=== PATIENT | male | born 1935 | race Caucasian/White ===

== ENCOUNTER 2016-04-25 08:00 | Outpatient (CLI) | payer MEDICARE, BC | END 2016-04-25 08:01 | disposition home or self-care (01) | DX: Z79.899 Other long term (current) drug therapy (principal); E11.9 Type 2 diabetes mellitus without complications ==

== ENCOUNTER 2016-07-10 08:00 | Outpatient (CLI) | payer MEDICARE, BC ==
[2016-07-10 14:10] LABS: BASOPHILS % (AUTO) 0.5 %; EOSINOPHILS # (AUTO) 0.3 10^3/uL (0.0-0.7); EOSINOPHILS % (AUTO) 3.2 %; HCT - HEMATOCRIT 43.7 % (42.0-52.0); HGB - HEMOGLOBIN 14.6 g/dL (14.0-18.0); LYMPHOCYTES # (AUTO) 1.5 10^3/uL (1.5-3.5); LYMPHOCYTES % (AUTO) 19.1 %; MEAN CORPUSCULAR HEMOGLOBIN 32.8 pg (27.0-31.0); MEAN CORPUSCULAR HGB CONC 33.3 g/dL (32.0-36.0); MEAN CORPUSCULAR VOLUME 98.5 fL (80.0-94.0); MEAN PLATELET VOLUME 11.2 fL (7.4-11.4); MONOCYTES # (AUTO) 0.8 10^3/uL (0.0-1.0); MONOCYTES % (AUTO) 10.7 %; NEUTROPHILS # (AUTO) 5.1 10^3/uL (1.5-6.6); NEUTROPHILS % (AUTO) 66.5 %; RED BLOOD COUNT 4.43 10^6/uL (4.70-6.10); RED CELL DISTRIBUTION WIDTH 12.3 % (12.0-15.0); UNCORRECTED WHITE BLOOD COUNT 7.7 x10^3/uL; WHITE BLOOD COUNT 7.7 x10^3/uL (4.8-10.8)
[2016-07-10 14:22] LABS: ALBUMIN/GLOBULIN RATIO 1.5 (1.0-2.2); BILIRUBIN,TOTAL 0.6 mg/dL (0.2-1.0); CREATININE 1.1 mg/dL (0.6-1.2); POTASSIUM 4.4 mmol/L (3.5-5.0); TOTAL PROTEIN 6.4 g/dL (6.7-8.2)
[2016-07-10 14:44] LABS: HEMOGLOBIN A1C 0.85 g/dL
== END 2016-07-10 08:01 ==
LOC: LAB.R 08:00
PROVIDERS: ATTEND Internal Medicine
DX: E11.65 Type 2 diabetes mellitus with hyperglycemia (principal); Z79.899 Other long term (current) drug therapy
CPT/HCPCS: 80053; 83036; 85025

== ENCOUNTER 2016-12-01 08:00 | Outpatient (CLI) | payer MEDICARE, BC ==
[2016-12-01 18:06] LABS: HEMOGLOBIN A1C 0.98 g/dL
== END 2016-12-01 08:01 | disposition home or self-care (01) ==
LOC: LAB.R 08:00
PROVIDERS: ATTEND Internal Medicine
DX: E11.9 Type 2 diabetes mellitus without complications (principal); Z79.899 Other long term (current) drug therapy
CPT/HCPCS: 83036

== ENCOUNTER 2017-05-29 09:00 | Outpatient (CLI) | payer MEDICARE, BC ==
[2017-05-29 13:31] LABS: HB2 TOTAL 16.6 g/dL; HEMOGLOBIN A1C 0.94 g/dL; HEMOGLOBIN A1C % 7.3 % (4.6-6.2)
== END 2017-05-29 09:01 | disposition home or self-care (01) ==
LOC: LAB.R 09:00
PROVIDERS: ATTEND Internal Medicine
DX: E11.9 Type 2 diabetes mellitus without complications (principal)
CPT/HCPCS: 83036

== ENCOUNTER 2017-07-17 08:25 | Outpatient (CLI) | payer MEDICARE, BC ==
[2017-07-17 15:50] LABS: ALBUMIN 3.8 g/dL (3.2-5.5); ALBUMIN/GLOBULIN RATIO 1.3 (1.0-2.2); BILIRUBIN,TOTAL 0.9 mg/dL (0.2-1.0); CALCIUM 8.5 mg/dL (8.5-10.3); CREATININE 1.1 mg/dL (0.6-1.2); TOTAL PROTEIN 6.7 g/dL (6.7-8.2)
[2017-07-17 16:04] LABS: BASOPHILS # (AUTO) 0.1 10^3/uL (0.0-0.1); BASOPHILS % (AUTO) 0.9 %; EOSINOPHILS # (AUTO) 0.2 10^3/uL (0.0-0.7); EOSINOPHILS % (AUTO) 3.2 %; HGB - HEMOGLOBIN 14.1 g/dL (14.0-18.0); LYMPHOCYTES # (AUTO) 1.5 10^3/uL (1.5-3.5); LYMPHOCYTES % (AUTO) 20.4 %; MEAN CORPUSCULAR HEMOGLOBIN 31.4 pg (27.0-31.0); MEAN CORPUSCULAR HGB CONC 31.9 g/dL (32.0-36.0); MEAN CORPUSCULAR VOLUME 98.4 fL (80.0-94.0); MEAN PLATELET VOLUME 10.5 fL (7.4-11.4); MONOCYTES # (AUTO) 0.8 10^3/uL (0.0-1.0); MONOCYTES % (AUTO) 10.9 %; NEUTROPHILS # (AUTO) 4.7 10^3/uL (1.5-6.6); NEUTROPHILS % (AUTO) 64.6 %; PLT - PLATELET COUNT 223 10^3/uL (130-450); RED BLOOD COUNT 4.47 10^6/uL (4.70-6.10); RED CELL DISTRIBUTION WIDTH 12.3 % (12.0-15.0); WHITE BLOOD COUNT 7.3 x10^3/uL (4.8-10.8)
== END 2017-07-17 08:26 | disposition home or self-care (01) ==
LOC: LAB.R 08:25
PROVIDERS: ATTEND Internal Medicine
DX: E11.9 Type 2 diabetes mellitus without complications (principal); Z79.899 Other long term (current) drug therapy
CPT/HCPCS: 80053; 85025

== ENCOUNTER 2017-09-06 11:42 | Emergency (ER) | payer MEDICARE, BC ==
--- NOTE | 2017-09-06 12:06 | ED Physician Documentation ---
PD HPI SYNCOPE - Stated complaint Stated Complaint: Dizzy - Chief complaint Chief Complaint: Neuro - History obtained from History obtained from: Patient - History of Present Illness Witnessed: Witnessed Timing - onset: Today Duration: Seconds Preceding symptoms: Light headed, Generalized weakness. No: Headache, Chest pain, Nausea / vomiting Associated symptoms: Diaphoresis. No: Headache, Chest pain, Palpitations, Abdominal pain Contributing factors: Just stood up (he was after adventism, was sitting down having a snack, and then stood up to get a cookie, felt lightheaded. says he was pale and sweaty. He sat down and recovered in a minute or so. EMS found him in sinus rhythm. BP was okay at that time.) Injury occurred: No: Fell, Head injury Similar symptoms before: Has not had sx before Recently seen: Not recently seen Review of Systems Constitutional: denies: Fever, Chills Eyes: denies: Loss of vision Nose: denies: Rhinorrhea / runny nose, Congestion Throat: denies: Sore throat Cardiac: denies: Chest pain / pressure, Palpitations Respiratory: denies: Dyspnea, Cough GI: denies: Abdominal Pain, Vomiting, Diarrhea : denies: Dysuria, Frequency Skin: denies: Rash Musculoskeletal: denies: Neck pain, Back pain Neurologic: reports: Generalized weakness. denies: Focal weakness, Numbness, Difficulty speaking, Headache Endocrine: denies: Weight loss Immunocompromised: denies: Immunocompromised PD PAST MEDICAL HISTORY - Past Medical History Cardiovascular: Hypertension, High cholesterol GI: Diverticulitis Musculoskeletal: Other - Past Surgical History Past Surgical History: Yes Ortho: Shoulder arthroplasty, Spine surgery HEENT: Cataracts - Present Medications Home Medications: Ambulatory Orders Medication Instructions Recorded Confirmed Celecoxib [Celebrex] 200 mg PO DAILY 06/02/14 08/28/14 Citalopram [CeleXA] 10 mg PO DAILY 06/02/14 08/28/14 metFORMIN [Glucophage] 500 mg PO BID 06/02/14 08/28/14 - Allergies Allergies/Adverse Reactions: Allergies Allergy/AdvReac Type Severity Reaction Status Date / Time hydrocodone Allergy Hives Verified 06/02/14 12:07 - Living Situation Living Situation: reports: With spouse/s.o. Living Arrangement: reports: At home - Social History Does the pt smoke?: No Smoking Status: Never smoker Does the pt drink ETOH?: No Does the pt have substance abuse?: No - Family History Family history: reports: Non contributory - Immunizations Immunizations are current?: Yes PD ED PE NORMAL - Vitals Vital signs reviewed: Yes - General General: Alert and oriented X 3, No acute distress, Well developed/nourished - HEENT HEENT: Atraumatic, PERRL, EOMI, Pharynx benign - Neck Neck: Supple, no meningeal sign, No adenopathy - Cardiac Cardiac: RRR, No murmur - Respiratory Respiratory: Clear bilaterally - Abdomen Abdomen: Soft, Non tender - Male Male : Deferred - Rectal Rectal: Deferred - Back Back: No CVA TTP - Derm Derm: Normal color, Warm and dry - Extremities Extremities: No deformity, No tenderness to palpate, Normal ROM s pain, No edema , No calf tenderness / cord - Neuro Neuro: Alert and oriented X 3, No motor deficit, Normal speech Eye Opening: Spontaneous Motor: Obeys Commands Verbal: Oriented GCS Score: 15 - Psych Psych: Normal mood Results - Vitals Vitals: Oxygen O2 Source Room air - EKG (time done) 11:58 Rate: Rate (enter#) (54) Rhythm: Sinus bradycardia [place]: Normal Intervals: Normal SD QRS: Normal Ischemia: Normal ST segments. No: ST elevation c/w ischemia, ST depression - Labs Labs: Laboratory Tests 09/06/17 09/06/17 09/06/17 12:10 12:10 12:10 WBC 8.7 RBC 4.21 L Hgb 14.0 Hct 42.2 MCV 100.2 H MCH 33.1 H MCHC 33.1 RDW 12.3 Plt Count 231 MPV 10.0 Neut # (Auto) 5.9 Lymph # (Auto) 1.5 [place] # (Auto) 1.0 Eos # (Auto) 0.1 Baso # (Auto) 0.1 Absolute Nucleated RBC 0.00 Nucleated RBC % 0.0 Sodium 135 Potassium 4.1 Chloride 103 Carbon Dioxide 22 Anion Gap 10.0 BUN 27 H Creatinine 1.1 Estimated GFR (MDRD) 64 L Glucose 149 H POC Whole Bld Glucose Calcium 8.6 Magnesium 2.1 Total Bilirubin 0.5 AST 18 ALT 22 Alkaline Phosphatase 46 Troponin I B-Natriuretic Peptide Total Protein 6.5 L Albumin 3.5 Globulin 3.0 Albumin/Globulin Ratio 1.2 Lipase 20 L 09/06/17 09/06/17 09/06/17 12:10 12:10 12:14 WBC RBC Hgb Hct MCV MCH MCHC RDW Plt Count MPV Neut # (Auto) Lymph # (Auto) [place] # (Auto) Eos # (Auto) Baso # (Auto) Absolute Nucleated RBC Nucleated RBC % Sodium Potassium Chloride Carbon Dioxide Anion Gap BUN Creatinine Estimated GFR (MDRD) Glucose POC Whole Bld Glucose 189 H Calcium Magnesium Total Bilirubin AST ALT Alkaline Phosphatase Troponin I < 0.04 B-Natriuretic Peptide 20 Total Protein Albumin Globulin Albumin/Globulin Ratio Lipase PD MEDICAL DECISION MAKING - ED course Complexity details: reviewed results, re-evaluated patient (still feeling okkay) , considered differential, d/w patient - Sepsis Event Vital Signs: Oxygen O2 Source Room air Departure - Departure Disposition: 01 Home, Self Care Clinical Impression: Near syncope Condition: Stable Record reviewed to determine appropriate education?: Yes Instructions: ED Near Syncope Unkn Follow-Up: Fei Sam MD [Primary Care Provider] - Comments: Drink lots of fluids and rest today. Your heart rhythm and EKG have been good here. Your blood count electrolytes are also good. No signs of heart failure or heart attack on blood tests or EKG. I presume there was a transient drop in blood pressure or possibly abnormal heart rhythm. These would not leave telltale signs subsequently, so can only make a gas at it. You look well now so you should be okay heading home. Discharge Date/Time: 09/06/17 15:00
[2017-09-06 12:16] LABS: BASOPHILS # (AUTO) 0.1 10^3/uL (0.0-0.1); BASOPHILS % (AUTO) 0.7 %; EOSINOPHILS # (AUTO) 0.1 10^3/uL (0.0-0.7); EOSINOPHILS % (AUTO) 1.5 %; LYMPHOCYTES # (AUTO) 1.5 10^3/uL (1.5-3.5); LYMPHOCYTES % (AUTO) 17.4 %; MEAN CORPUSCULAR HEMOGLOBIN 33.1 pg (27.0-31.0); MEAN CORPUSCULAR HGB CONC 33.1 g/dL (32.0-36.0); MEAN CORPUSCULAR VOLUME 100.2 fL (80.0-94.0); MONOCYTES % (AUTO) 11.9 %; NEUTROPHILS # (AUTO) 5.9 10^3/uL (1.5-6.6); NEUTROPHILS % (AUTO) 68.5 %; PLT - PLATELET COUNT 231 10^3/uL (130-450); RED BLOOD COUNT 4.21 10^6/uL (4.70-6.10); RED CELL DISTRIBUTION WIDTH 12.3 % (12.0-15.0); WHITE BLOOD COUNT 8.7 x10^3/uL (4.8-10.8)
[2017-09-06 12:31] LABS: ALBUMIN 3.5 g/dL (3.2-5.5); ALBUMIN/GLOBULIN RATIO 1.2 (1.0-2.2); BILIRUBIN,TOTAL 0.5 mg/dL (0.2-1.0); CALCIUM 8.6 mg/dL (8.5-10.3); CREATININE 1.1 mg/dL (0.6-1.2); TOTAL PROTEIN 6.5 g/dL (6.7-8.2)
[2017-09-06] MEDS ORDERED: SODIUM CHLORIDE 0.9% 1,000 ML IV ONE (12:48)
[2017-09-06 14:57] VITALS: BP 130/69
== END 2017-09-06 15:00 | disposition home or self-care (01) ==
LOC: ED 11:42
DX: R55 Syncope and collapse (principal)
CPT/HCPCS: 36415; 80053; 83690; 83735; 83880; 84484; 85025; 93005; 96360; 96361; 99283; 99284

== ENCOUNTER 2017-09-18 11:14 | Outpatient (CLI) | payer MEDICARE, BC ==
--- NOTE | 2017-09-18 16:42 | CT Report ---
Procedure Date: 09/18/2017 Accession Number: [id number] / [id number] Procedure: CT - Head W/O CPT Code: FULL RESULT: EXAM: Head W/O DATE: 09/18/2017 11:29 AM CLINICAL HISTORY: (IDIOPATHIC) NORMAL PRESSURE HYDROCEPHALUS COMPARISON: Head CT 01/20/2008. TECHNIQUE: Multiaxial CT images were obtained from the foramen magnum to the vertex. IV contrast: None. Reformats: Coronal. In accordance with CT protocol optimization, one or more of the following dose reduction techniques were utilized for this exam: automated exposure control, adjustment of mA and/or KV based on patient size, or use of iterative reconstructive technique. FINDINGS: Parenchyma: No intraparenchymal hemorrhage. No evidence of mass, midline shift, or CT findings of infarction. Grover-white differentiation is distinct. Extraaxial Spaces: Normal for age. No subdural or epidural collections identified. Ventricles: Interval placement of a right parietal approach ventriculostomy catheter terminating in the anterior horn of the left lateral ventricle. Stable ventriculomegaly. Sinuses: Imaged paranasal sinuses, orbits, and mastoids show no significant abnormality. Bones: No evidence of fracture or calvarial defect. Other: None. IMPRESSION: Interval ventriculostomy catheter placement with stable ventricular configuration. RADIA
== END 2017-09-18 11:15 | disposition home or self-care (01) ==
LOC: DI 11:14
PROVIDERS: ATTEND Physician Assistant Surgical
DX: G91.2 (Idiopathic) normal pressure hydrocephalus (principal); Z98.2 Presence of cerebrospinal fluid drainage device
CPT/HCPCS: 70450

== ENCOUNTER 2017-10-20 06:15 | Day surgery (SDC) | payer MEDICARE, BC ==
[2017-10-20] MEDS ORDERED: PROPOFOL 200 MG/20 ML VIAL IVP ONE (06:16)
[2017-10-20] MEDS ORDERED: LIDOCAINE-MPF 2% 5 ML VIAL IM ONE (06:16)
[2017-10-20] MEDS ORDERED: LACTATED RINGERS 1,000 ML IV ONE (06:43)
[2017-10-20] MEDS ORDERED: BUPIVACAINE 0.25% PF 30 ML VIAL ONE (06:55)
[2017-10-20] MEDS ORDERED: LIDOCAINE 1%-EPI 1:100000 30 ML MDV ONE (06:55)
--- NOTE | 2017-10-20 07:05 | ANESTHESIA ---
Pre-Anesthesia VS, & Labs - Diagnosis Bilateral carpal tunnel release - Procedure Bilateral Carpal Tunnel Release Vital Signs: Temp Pulse Resp BP Pulse Ox 36.5 C 24 127/59 L 97 10/20/17 06:41 10/20/17 06:41 10/20/17 06:41 10/20/17 06:41 Height 5 ft 6 in Weight (kg) 95.7 kg Body Mass Index 32.8 - NPO >8 hours Home Medications and Allergies Home Medications: Ambulatory Orders Medication Instructions Recorded Confirmed Celecoxib [Celebrex] 200 mg PO DAILY 06/02/14 10/19/17 Citalopram [CeleXA] 20 mg PO DAILY 06/02/14 10/19/17 metFORMIN [Glucophage] 500 mg PO BID 06/02/14 10/19/17 Acetaminophen [Tylenol Arthritis] 650 mg PO Q6HR PRN 10/19/17 10/19/17 Allergies/Adverse Reactions: Allergies Allergy/AdvReac Type Severity Reaction Status Date / Time hydrocodone Allergy Hives Verified 10/20/17 06:58 latex AdvReac Rash Verified 10/20/17 06:58 Anes History & Medical History - Anesthetic History Anesthesia Complications: reports: No previous complications Family history of Anesthesia Complications: Denies Family history of Malignant Hyperthermia: Denies - Medical History Cardiovascular: reports: Hypertension, High cholesterol, NV (patient denies) Pulmonary: reports: Sleep apnea, CPAP use Gastrointestinal: reports: Diverticulitis Musculoskeletal: reports: Chronic back pain, Other Endocrine/Autoimmune: reports: None, Type 2 diabetes Skin: reports: None Smoking Status: Never smoker - Surgical History Eyes Ears Nose Throat (EENT): Cataracts, Tonsil/Adenoidectomy Neurologic: SAMPLE PREP TECHNICIAN shunt Orthopedic: Shoulder arthroplasty, Spine surgery, Other Results - EKG Results EKG Comparison: Reviewed EKG (SR, boarderline AL, no ishemic changes) Exam General: Alert Dental: WNL Mouth Opening: Greater than 4 Fingerbreadths Neck Mobility: Normal Mallampati classification: II Thyromental Distance: greater than 6 cm Respiratory: Lungs clear Cardiovascular: Regular rate Plan Anesthesia Type: MAC Consent for Procedure(s) Verified and Reviewed: Yes Code Status: Attempt Resuscitation ASA classification: 3-Severe systemic disease Is this case an emergency?: No
[2017-10-20] MEDS ORDERED: fentaNYL 100 MCG/2 ML VIAL IVP ONE (07:50)
[2017-10-20] MEDS ORDERED: BUPIVACAINE 0.25% PF 30 ML VIAL SUBQ ONE ×2 (07:55)
[2017-10-20] MEDS ORDERED: LIDOCAINE 1%-EPI 1:100000 20 ML MDV SUBQ ONE ×2 (07:56)
[2017-10-20 09:23] VITALS: BP 121/67
--- NOTE | 2017-10-20 14:34 | OPERATIVE REPORT ---
DATE OF SERVICE: 10/20/2017 Physician: Lotus Miranda MD PREOPERATIVE DIAGNOSIS: Bilateral carpal tunnel syndrome. POSTOPERATIVE DIAGNOSIS: Bilateral carpal tunnel syndrome. PROCEDURE PERFORMED: Bilateral carpal tunnel release. OPERATING SURGEON: Lotus Miranda MD ANESTHESIA: Local and MAC sedation. INDICATIONS FOR SURGERY: Patient is an 82-year-old male with progressive bilateral carpal tunnel syn drome, who has failed nonoperative treatment including bracing and he desires carpal tunnel release. DESCRIPTION OF OPERATIVE PROCEDURE: The patient was taken to the operating room and was given a leopoldo tion anesthetic and his carpal tunnel areas in each palm were sterilely infiltrated with 8 mL of 0.25 % Marcaine with epinephrine. Once these carpal tunnel blocks were performed, the surgical timeout wa s undertaken, the patient's hands were prepped and draped in standard fashion. The surgical approach was first on the right hand with 1-1/2 inch incision in the palm in line with the third web taken th rough skin and subcutaneous tissue, exposing transverse carpal ligament, which was divided in line wi th the incision. The release extended from the distal wrist flexion crease to the level of the dista l palmar arch. The area was irrigated and closed with interrupted nylon suture. A sterile dressing was applied. The identical surgery was then performed on the left palm once again sizing 1-1/2 inche s in line with the third web dissecting to transverse carpal ligament, dividing it directly and with direct exposure extending from distal wrist flexion crease to the palmar arch gaining great exposure. The wound was irrigated. Closure was with 3-0 nylon interrupted in the skin. Sterile dressings we re applied. The patient was taken to recovery room in stable condition. ESTIMATED BLOOD LOSS: Minimal. COMPLICATIONS: None. COUNTS: Sponge and needle counts correct. TD: 10/20/2017 13:52
== END 2017-10-20 06:16 | disposition home or self-care (01) ==
LOC: SDS 06:15
PROVIDERS: ATTEND Orthopaedic Surgery
PROC: 01N50ZZ Release Median Nerve, Open Approach (ICD-10-PCS; 2017-10-20)
PROC: 01N50ZZ Release Median Nerve, Open Approach (ICD-10-PCS; principal; 2017-10-20 07:30)
DX: G56.03 Carpal tunnel syndrome, bilateral upper limbs (principal); G47.30 Sleep apnea, unspecified; E11.9 Type 2 diabetes mellitus without complications; I10 Essential (primary) hypertension; F32.9 Major depressive disorder, single episode, unspecified; F41.9 Anxiety disorder, unspecified; G91.2 (Idiopathic) normal pressure hydrocephalus; Z98.2 Presence of cerebrospinal fluid drainage device; Z79.84 Long term (current) use of oral hypoglycemic drugs
CPT/HCPCS: 64721; J7120

== ENCOUNTER 2018-09-28 12:18 | Outpatient (CLI) | payer MEDICARE, BC ==
[2018-09-28 12:50] LABS: BASOPHILS # (AUTO) 0.1 10^3/uL (0.0-0.1); BASOPHILS % (AUTO) 0.7 %; EOSINOPHILS # (AUTO) 0.2 10^3/uL (0.0-0.7); EOSINOPHILS % (AUTO) 2.1 %; HGB - HEMOGLOBIN 13.8 g/dL (14.0-18.0); LYMPHOCYTES # (AUTO) 1.7 10^3/uL (1.5-3.5); MEAN CORPUSCULAR HEMOGLOBIN 31.9 pg (27.0-31.0); MEAN CORPUSCULAR HGB CONC 31.7 g/dL (32.0-36.0); MEAN CORPUSCULAR VOLUME 100.7 fL (80.0-94.0); MEAN PLATELET VOLUME 11.7 fL (7.4-11.4); MONOCYTES # (AUTO) 0.9 10^3/uL (0.0-1.0); MONOCYTES % (AUTO) 12.3 %; NEUTROPHILS # (AUTO) 4.8 10^3/uL (1.5-6.6); NEUTROPHILS % (AUTO) 62.5 %; PLT - PLATELET COUNT 246 10^3/uL (130-450); RED BLOOD COUNT 4.32 10^6/uL (4.70-6.10); RED CELL DISTRIBUTION WIDTH 12.3 % (12.0-15.0); WHITE BLOOD COUNT 7.6 x10^3/uL (4.8-10.8)
[2018-09-28 13:05] LABS: ALBUMIN 3.7 g/dL (3.2-5.5); ALBUMIN/GLOBULIN RATIO 1.3 (1.0-2.2); BILIRUBIN,TOTAL 0.6 mg/dL (0.2-1.0); CALCIUM 8.9 mg/dL (8.5-10.3); CREATININE 1.2 mg/dL (0.6-1.2); TOTAL PROTEIN 6.6 g/dL (6.7-8.2)
[2018-09-28 13:09] LABS: HB2 TOTAL 14.5 g/dL; HEMOGLOBIN A1C 0.87 g/dL; HEMOGLOBIN A1C % 7.6 % (4.6-6.2)
== END 2018-09-28 12:19 | disposition home or self-care (01) ==
LOC: LAB 12:18
PROVIDERS: ATTEND Family Medicine
DX: G47.33 Obstructive sleep apnea (adult) (pediatric) (principal); Z79.899 Other long term (current) drug therapy; E11.9 Type 2 diabetes mellitus without complications; G91.2 (Idiopathic) normal pressure hydrocephalus; E66.9 Obesity, unspecified
CPT/HCPCS: 36415; 80053; 83036; 83880; 84443; 85025

== ENCOUNTER 2019-04-10 09:08 | Outpatient (CLI) | payer MEDICARE, BC ==
[2019-04-10 09:37] LABS: CALCIUM 8.8 mg/dL (8.5-10.3); CREATININE 1.3 mg/dL (0.6-1.2)
[2019-04-10 09:46] LABS: HB2 TOTAL 14.4 g/dL; HEMOGLOBIN A1C % 8.5 % (4.6-6.2)
== END 2019-04-10 09:09 | disposition home or self-care (01) ==
LOC: LAB 09:08
PROVIDERS: ATTEND Family Medicine
DX: E11.9 Type 2 diabetes mellitus without complications (principal)
CPT/HCPCS: 36415; 80048; 83036

== ENCOUNTER 2019-04-19 10:19 | Outpatient (CLI) | payer MEDICARE, BC ==
[2019-04-20 08:51] VITALS: BP 138/83
--- NOTE | 2019-04-20 08:51 | SLEEP CARE CONSULTATION ---
Information from patient questionnaire entered by Gabriella Feng. I have reviewed and concur with the information entered by Gabriella Feng. This document represents the service I personally performed and the decisions made by me, Kye Kidd MD, [facility]. History of Present Illness Reason for Visit: Previously diagnosed sleep apnea (mild - 16.7), Re-establish care Additional HPI information: I had the pleasure of seeing Mr. Saba today regarding obstructive sleep apnea-hypopnea. As you know, he is a 83 year old gentleman who was diagnosed with the sleep-disordered breathing here in 2006 (he was actually first diagnosed in the mid in [place]). The AHI was 16.7. He was prescribed a CPAP device set at 13 cmH2O. He uses the Respironics M-Series CPAP every night and all night. His memory card cannot be downloaded because it is the old credit-card type. He wears a ResMed Quattro full face mask which leaks profusely according to his . He gets his supplies from [employer]. He finds the treatment very beneficial but still is sleepy during the day. He reports that the CPAP turns itself off frequently at night. Past Medical History Past Medical History: reports: Diabetes, Other (S/P tonsillectomy) Social History The patient's occupation is a RE. Patient is and lives in [place]. Allergies and Home Medications Drug allergies reviewed: Yes (NKDA) Home medication list reviewed: Yes (Advil, Tylenol, Celebrex, and metformin) Review of Systems Cardiovascular: denies: high blood pressure, palpitations, chest pain, irregular heart rate or pulse, leg or foot swelling, have to sleep sitting up, other Respiratory: denies: shortness of breath, wheeze, sputum production, chronic cough, other Gastrointestinal: denies: heartburn, difficulty swallowing, nausea, vomitting, diarrhea, abdominal pain, other Urinary: denies: incontinence, frequency, urgency, impotence, other Neurological: denies: headaches, seizure, head trauma, disorientation, speech dysfunction, gait or balance problems, fainting or unconsciousness, other Psychiatric: denies: Attention Deficit Hyperactivity, anxiety, depression, mood disorder, claustrophobia, other Ear/Nose/Throat: denies: nasal congestion, sinus problems, nose bleeds, dry mouth/throat, hoarseness, injury to nose, tonsillectomy, wisdom teeth removed, other Immunologic: denies: sneezing, rash, itching, allergies to food or environment, other Physical Exam Vital signs obtained and entered by: Dr. Kidd Blood Pressure: 138/83 Cuff size: regular Heart Rate: 75 O2 Saturation: 98 Height: 5 ft 6 in Weight: 212 lb Body Mass Index: 34.2 BMI Classification: Obese Neck circumference: 16 Mood/affect: normal HEENT: No craniofacial malformation Nostrils: patent to airflow Turbinates: normal Septum: midline Mouth and throat: narrow oropharynx Soft palate: long Hard palate: normal Uvula: normal Uvula visualization: 50% Mallampati Class II Tongue: normal in size Tonsils: small Chin and jaw: normal size and position Neck: normal w/o lymphadenopathy or thyromegaly Heart: regular rate and rhythm Lungs: clear bilaterally Abdomen: soft, non-tender Extremities: no edema or clubbing Neurologic: intact, no focal deficits Impression and Plan IMPRESSION: 1. Obstructive Sleep Apnea-Hypopnea Syndrome, moderate, as previously diagnosed. The patient has had good treatment compliance according to him and his . The current pressure setting appears comfortable. The effectiveness is unknown because we cannot download the credit-card type memory card. The patient experiences improvement on the treatment but is still sleepy during the day. Narrow oropharynx and obesity are common predisposing factors for obstructive sleep apnea-hypopnea syndrome. Because the CPAP is broken and is now older than the useful life of 5 years, I will order the patient a new one and make it an autoCPAP set between 10 and 15 cmH2O. Plan: 1. Prescription made for an autoCPAP, heated humidifier, and related supplies. 2. Try newer full face masks. 3. Avoid alcohol, sedative and muscle relaxant around bedtime. 4. Attempt to lose weight. 5. Return for follow up after one month on the new machine. I spent 100% of this visit face to face with the patient with greater than 50% of this was spent time counseling the patient and coordination of care.
== END 2019-04-19 10:20 | disposition home or self-care (01) ==
LOC: SC 10:19
PROVIDERS: ATTEND Internal Medicine Pulmonary Disease
DX: G47.33 Obstructive sleep apnea (adult) (pediatric) (principal); E66.9 Obesity, unspecified; Z68.34 Body mass index [BMI] 34.0-34.9, adult
CPT/HCPCS: 99203; G0463; 99212

== ENCOUNTER 2019-07-20 11:57 | Outpatient (CLI) | payer MEDICARE, BC ==
--- NOTE | 2019-07-21 14:03 | CT Report ---
Reason: ALTERED MENTAL STATUS Procedure Date: 07/20/2019 Accession Number: [id number] / [id number] Procedure: CT - HEAD WO CPT Code: Final Report FULL RESULT: EXAM: CT HEAD EXAM DATE: 07/20/2019 12:15 PM. CLINICAL HISTORY: ALTERED MENTAL STATUS. History of HEALTH SCIENCES MANAGER shunt. COMPARISON: HEAD W/O 09/18/2017 11:26 AM. TECHNIQUE: Multiaxial CT images were obtained from the foramen magnum to the vertex. Reformats: Sagittal and coronal. IV contrast: None. In accordance with CT protocol optimization, one or more of the following dose reduction techniques were utilized for this exam: automated exposure control, adjustment of mA and/or KV based on patient size, or use of iterative reconstructive technique. FINDINGS: Parenchyma: No intraparenchymal hemorrhage. No evidence of mass, midline shift, or CT findings of acute infarction. Grover-white differentiation is distinct. Diffuse chronic microangiopathic white matter changes are evident. Extraaxial Spaces: Normal for age. No subdural or epidural collections identified. Ventricles: Mild diffuse prominence of the sulci is consistent with age-related volume loss. Again demonstrated is a right parietal approach ventricular shunt catheter which extends across the midline with the tip in the lateral aspect of the left frontal horn, without change. Ventricular dilatation is unchanged. Sinuses and orbits: Imaged paranasal sinuses, orbits, and mastoids show no significant abnormality. Bones: No evidence of fracture or calvarial defect. Other: None. IMPRESSION: 1. No acute abnormality of the head or significant interval change. 2. Stable appearance of the ventricular shunt catheter. Stable ventricular dilatation compared with 09/18/2017. RADIA
== END 2019-07-20 11:58 | disposition home or self-care (01) ==
LOC: DI 11:57
PROVIDERS: ATTEND Neurological Surgery
DX: R41.82 Altered mental status, unspecified (principal); Z98.2 Presence of cerebrospinal fluid drainage device
CPT/HCPCS: 70450

== ENCOUNTER 2019-11-14 10:59 | Outpatient (CLI) | payer MEDICARE, BC ==
[2019-11-14 11:34] LABS: BASOPHILS # (AUTO) 0.1 10^3/uL (0.0-0.1); BASOPHILS % (AUTO) 0.7 %; EOSINOPHILS # (AUTO) 0.2 10^3/uL (0.0-0.7); EOSINOPHILS % (AUTO) 2.6 %; HGB - HEMOGLOBIN 14.2 g/dL (14.0-18.0); LYMPHOCYTES # (AUTO) 1.2 10^3/uL (1.5-3.5); LYMPHOCYTES % (AUTO) 16.7 %; MEAN CORPUSCULAR HEMOGLOBIN 33.6 pg (27.0-31.0); MEAN CORPUSCULAR HGB CONC 32.8 g/dL (32.0-36.0); MEAN CORPUSCULAR VOLUME 102.4 fL (80.0-94.0); MEAN PLATELET VOLUME 10.5 fL (7.4-11.4); MONOCYTES # (AUTO) 0.8 10^3/uL (0.0-1.0); MONOCYTES % (AUTO) 10.8 %; NEUTROPHILS # (AUTO) 5.1 10^3/uL (1.5-6.6); NEUTROPHILS % (AUTO) 68.5 %; PLT - PLATELET COUNT 300 10^3/uL (130-450); RED BLOOD COUNT 4.23 10^6/uL (4.70-6.10); RED CELL DISTRIBUTION WIDTH 12.3 % (12.0-15.0); WHITE BLOOD COUNT 7.4 x10^3/uL (4.8-10.8)
[2019-11-14 12:12] LABS: ALBUMIN 3.7 g/dL (3.2-5.5); ALBUMIN/GLOBULIN RATIO 1.3 (1.0-2.2); ALKALINE PHOSPHATASE 51 IU/L (42-121); ALT ALANINE AMINOTRANSFERASE 25 IU/L (10-60); AST ASPARTATE AMINOTRANSFERASE 14 IU/L (10-42); BILIRUBIN,TOTAL 0.6 mg/dL (0.2-1.0); BUN - BLOOD UREA NITROGEN 37 mg/dL (6-20); CARBON DIOXIDE - CO2 27 mmol/L (21-32); CHLORIDE 106 mmol/L (101-111); CHOLESTEROL 139 mg/dL; CREATININE 1.2 mg/dL (0.6-1.2); GLUCOSE 118 mg/dL (70-100); HDL CHOLESTEROL 35 mg/dL; LDL CHOLESTEROL,CALCULATED 83 mg/dL; LDL/HDL RATIO 2.4 (<3.6); SODIUM 140 mmol/L (135-145); TOTAL PROTEIN 6.6 g/dL (6.7-8.2); VLDL CHOLESTEROL 21 mg/dL
== END 2019-11-14 11:00 | disposition home or self-care (01) ==
LOC: LAB 10:59
PROVIDERS: ATTEND Family Medicine
DX: M25.512 Pain in left shoulder (principal); M54.16 Radiculopathy, lumbar region; E66.9 Obesity, unspecified; G47.33 Obstructive sleep apnea (adult) (pediatric); E11.9 Type 2 diabetes mellitus without complications; G91.2 (Idiopathic) normal pressure hydrocephalus
CPT/HCPCS: 36415; 80053; 80061; 83036; 83721; 84443; 85025

== ENCOUNTER 2020-02-13 10:45 | Outpatient (CLI) | payer MEDICARE, BC ==
[2020-02-13 11:37] LABS: CALCIUM 9.3 mg/dL (8.5-10.3); CREATININE 1.3 mg/dL (0.6-1.2)
[2020-02-13 12:01] LABS: HEMOGLOBIN A1c% 6.4 % (4.27-6.07)
== END 2020-02-13 10:46 | disposition home or self-care (01) ==
LOC: LAB 10:45
PROVIDERS: ATTEND Family Medicine
DX: E11.9 Type 2 diabetes mellitus without complications (principal)
CPT/HCPCS: 36415; 80048; 82043; 82570; 83036

== ENCOUNTER 2020-02-15 08:00 | Outpatient (CLI) | payer MEDICARE, BC ==
[2020-02-15 09:51] LABS: CREATININE,URINE 68.5 mg/dL
[2020-02-15 09:52] LABS: MICROALBUMIN,URINE < 0.2 mg/dL (0-300.0)
== END 2020-02-15 23:59 | disposition home or self-care (01) ==
LOC: LAB.R 08:00
PROVIDERS: ATTEND Family Medicine
DX: E11.9 Type 2 diabetes mellitus without complications (principal)
CPT/HCPCS: 82043; 82570

== ENCOUNTER 2020-03-28 14:03 | Outpatient (CLI) | payer MEDICARE, BC ==
--- NOTE | 2020-03-28 14:40 | SLEEP CARE CONSULTATION ---
Information from patient questionnaire entered by Clark Morales. I have reviewed and concur with the information entered by Clark Morales. This document represents the service I personally performed and the decisions made by me, Janey Sarmiento ARNP. History of Present Illness Service Date and Time: 03/28/2020 1403 Previous diagnosis: Moderate, Obstructive Sleep Apnea-Hypopnea Syndrome AHI: 16.7 Reason for follow up: first compliance after device update Equipment type: CPAP Equipment obtained from: [employer] (getting supplies as needed) Mask style: Full face Mask brand: Resmed (Mirage Quattro) Backup mask available: Yes (old mask) Last cushion change: 2 months Year and Where: 2006 [facility] Type of Sleep Study: Polysomnography HPI additional information: KENNY LOZOYA was diagnosed to have moderate, AHI 16.7, obstructive sleep apnea-hypopnea syndrome and returned today for CPAP therapy first compliance follow-up. CPAP Compliance Data - Data Reviewed with Patient Average duration of nightly device use: 6 hours 59 minutes Compliance rate %: 83.3 Current pressure setting (cmH2O): 10-15 Humidity settin Heated hose settin Average residual AHI: 12.7 Central apnea: 1.1 Obstructive apnea: 8.8 Hypopnea: 2.9 Average large leak: 34 sec Subjective Patient concerns: reports: mask discomfort, mask leak noise, dry mouth, nose, throat (occasionally). denies: aerophagia, air blowing in eyes, condensation in mask/hose, nasal congestion, epistaxis, other Observed to snore while using device: Yes (once in a while) Current pressure setting perceived as: too low (doesn't feel like its breathing enough for him) On therapy, patient: reports: sleeping better, awakening more refreshed, being more awake and alert during the day, more rested overall. denies: drowsiness while driving Initial [place] Sleepiness Scale score: 2 (in 2019 (0 in 2009)) Allergies and Home Medications Drug allergies reviewed: Yes (hydrocodone, latex) Home medication list reviewed: Yes (Glimepride) Review of Systems Review of systems same as previous: Yes (no changes) Physical Exam Heart Rate: 73 O2 Saturation: 97 Height: 5 ft 6 in Weight: 205 lb Body Mass Index: 33.0 BMI Classification: Obese Impression and Plan 1. Obstructive Sleep Apnea-Hypopnea Syndrome, moderate, with good treatment compliance and fair apnea control. On CPAP therapy, the patient has better sleep quality and is more rested overall. To resolved air hunger I will adjust his pressure. The patients pressure will be changed to autoCPAP 14-18 cmH20 for elevation of the residual AHI and air hunger. Patient advised to contact me if pressure change is uncomfortable so that it can be adjusted. Goals for apnea control discussed. He has some mouth dryness occasionally and gets some mask leak noises around seal. Oral dryness can be reduced by adjusting humidity setting higher or heated hose lower or by adjusting both settings. Printed instructions given on how to change humidity and heated hose settings with rationale explaining why to change. Oral dryness can also be reduced by reducing mask leaks. Patient's states there is a flap noise on the mask that disturbs her sleep. It doesn't happen all the time and can be rhythmic. This may improve with increasing the pressure for his air hunger. If not, he may try a different full face mask that would be quieter. Patient's apnea severity and rationale for treatment to reduce apnea, improve sleep quality and reduce cardiovascular and cerebrovascular events was reviewed. I also reviewed the benefit of consistent device use of CPAP for arrhythmia, diabetes, and depression. * Change auto CPAP pressure to 14-18 cmH2O * Notify me if snoring with mask or feeling that the pressure is too much or too little * Attempt to lose weight * Call this office if any problems using CPAP * Return for follow up in 1-2 months, or sooner if concerns arise Counseling Topics: Spare mask, Weight loss health impact Visit Type: In Office Time Spent with Patient (minutes): 21 Provider Statement: I spent 100% of the Face to Face Visit with the patient with greater than 50% spent counseling the patient and coordination of care.
== END 2020-03-28 14:04 | disposition home or self-care (01) ==
LOC: SC 14:03
PROVIDERS: ATTEND Nurse Practitioner Family
DX: G47.33 Obstructive sleep apnea (adult) (pediatric) (principal); E66.9 Obesity, unspecified; Z68.33 Body mass index [BMI] 33.0-33.9, adult
CPT/HCPCS: 99213; G0463; 99212

== ENCOUNTER 2020-05-08 13:09 | Outpatient (CLI) | payer MEDICARE, BC ==
--- NOTE | 2020-05-08 13:37 | SLEEP CARE CONSULTATION ---
Information from patient questionnaire entered by Gabriella Feng. I have reviewed and concur with the information entered by Gabriella Feng. This document represents the service I personally performed and the decisions made by , Janey Sarmiento ARNP. History of Present Illness Service Date and Time: 05/08/2020 1309 Previous diagnosis: Moderate, Obstructive Sleep Apnea-Hypopnea Syndrome AHI: 16.7 (in 2006) Reason for follow up: other (6 week with pressure change) Equipment type: CPAP Equipment obtained from: [employer] (getting supplies as needed) Mask style: Full face Backup mask available: Yes (old mask) Last cushion change: 1 week Prior sleep studies: Yes Year and Where: 2006 - [facility], [place] Type of Sleep Study: Polysomnography HPI additional information: KENNY LOZOYA was diagnosed to have moderate, AHI 16.7, obstructive sleep apnea-hypopnea syndrome and returned today with spouse for CPAP therapy 6 week pressure change follow-up. CPAP Compliance Data - Data Reviewed with Patient Average duration of nightly device use: 6 hr 43 min Compliance rate %: 95 (40 days) Current pressure setting (cmH2O): 14-18 Humidity settin Heated hose settin Average residual AHI: 15.4 Average large leak: 48 sec Subjective Patient concerns: reports: mask leak noise (Noise, flap). denies: aerophagia, mask discomfort, air blowing in eyes, condensation in mask/hose, nasal congestion, dry mouth, nose, throat, epistaxis, other Observed to snore while using device: Yes (once in a while) Current pressure setting perceived as: too low On therapy, patient: reports: sleeping better, awakening more refreshed, being more awake and alert during the day, more rested overall. denies: drowsiness while driving Initial [place] Sleepiness Scale score: 2 (in 2019 (0 in 2009)) Current [place] Sleepiness Scale score: 4 Allergies and Home Medications Home medication list reviewed: Yes (Citalopram 1/2 tablet now) Review of Systems Review of systems same as previous: Yes (no changes) Physical Exam Heart Rate: 74 O2 Saturation: 98 Height: 5 ft 6 in Weight: 200 lb Body Mass Index: 32.3 BMI Classification: Obese Impression and Plan 1. Obstructive Sleep Apnea-Hypopnea Syndrome, moderate, with good treatment compliance and poor apnea control with elevated residual AHI. On CPAP therapy, the patient has better sleep quality and is more rested overall. The patients pressure will be changed to autoCPAP 18-20 cmH20 for elevation of residual AHI. Patient advised to contact me if pressure change is uncomfortable so that it can be adjusted. Goals for apnea control discussed. He continues to have an occasional flap noise coming from the mask. His spouse states it is not all the time but she has to wear ear plugs when it is happening. I advised them to consult with the DME to see if mask needs to be changed or replaced. They voiced understanding. Patient's apnea severity and rationale for treatment to reduce apnea, improve sleep quality and reduce cardiovascular and cerebrovascular events was reviewed. I also reviewed the benefit of consistent device use of CPAP for arrhythmia, diabetes and depression. * Change auto CPAP pressure to 18-20 cmH2O * Notify me if snoring with mask or feeling that the pressure is too much or too little * Attempt to lose weight * Call this office if any problems using CPAP * Return for follow up in 1-2 months, or sooner if concerns arise Counseling Topics: Spare mask, Weight loss health impact Other Participants: Spouse/Significant Other Time Spent with Patient (minutes): 17
== END 2020-05-08 13:10 | disposition home or self-care (01) ==
LOC: SC 13:09
PROVIDERS: ATTEND Nurse Practitioner Family
DX: G47.33 Obstructive sleep apnea (adult) (pediatric) (principal); E66.9 Obesity, unspecified; Z68.32 Body mass index [BMI] 32.0-32.9, adult
CPT/HCPCS: 99212; G0463

== ENCOUNTER 2020-07-03 10:49 | Outpatient (CLI) | payer MEDICARE, BC ==
--- NOTE | 2020-07-03 11:25 | SLEEP CARE CONSULTATION ---
Information from patient questionnaire entered by Gabriella Feng. I have reviewed and concur with the information entered by Gabriella Feng. This document represents the service I personally performed and the decisions made by , Janey Sarmiento ARNP. History of Present Illness Service Date and Time: 07/03/2020 1049 Previous diagnosis: Moderate, Obstructive Sleep Apnea-Hypopnea Syndrome AHI: 16.7 (in 2006) Reason for follow up: one month (with pressure change) Equipment type: CPAP Equipment obtained from: [employer] (getting supplies as needed) Mask style: Full face Backup mask available: Yes (old mask) Prior sleep studies: Yes Year and Where: [address] - [facility] Type of Sleep Study: Polysomnography HPI additional information: KENNY LOZOYA was diagnosed to have moderate, AHI 16.7, obstructive sleep apnea-hypopnea syndrome and returned today with spouse for CPAP therapy one month pressure change follow-up. CPAP Compliance Data - Data Reviewed with Patient Average duration of nightly device use: 4 hr 49 min Compliance rate %: 66.7 Current pressure setting (cmH2O): 18-20 Humidity settin Heated hose settin Average residual AHI: 30.7 Average large leak: 3 min Subjective Missed days of use due to: reports: other (erratic in turning off and on) Patient concerns: reports: mask discomfort, mask leak noise, dry mouth, nose, throat. denies: aerophagia, air blowing in eyes, condensation in mask/hose, nasal congestion, epistaxis, other Observed to snore while using device: No Current pressure setting perceived as: too low On therapy, patient: reports: sleeping better, awakening more refreshed, being more awake and alert during the day, more rested overall. denies: drowsiness while driving Initial [place] Sleepiness Scale score: 2 (in 2019 (0 in 2009)) Current [place] Sleepiness Scale score: 9 Allergies and Home Medications Home medication list reviewed: Yes (no changes) Review of Systems Review of systems same as previous: Yes (no changes) Physical Exam Heart Rate: 69 O2 Saturation: 96 Height: 5 ft 6 in Weight: 207 lb Body Mass Index: 33.4 BMI Classification: Obese Impression and Plan 1. Obstructive Sleep Apnea-Hypopnea Syndrome, moderate, with fair treatment compliance and poor apnea control with elevated residual AHI. On CPAP therapy, the patient has better sleep quality and is more rested overall. I reviewed the patient's chart and found that the best AHI control was on previous setting 10- 15 cmH2O. The patients pressure will be changed to autoCPAP 10-15 cmH20 to reduce elevation of residual AHI. Patient advised to contact me if pressure change is uncomfortable so that it can be adjusted. Goals for apnea control discussed. The machine is making a clicking noise every 5 minutes and keeping his awake. The machine sounds louder than it should be and sometimes the pressure is just not feeling like it is there in the mask at night. I will have the machine serviced. Patient and would like to have a different brand of machine if it needs to be replaced and try the [employer]. I will have them follow up in 1-2 months to see how things went. Patient's apnea severity and rationale for treatment to reduce apnea, improve sleep quality and reduce cardiovascular and cerebrovascular events was reviewed. I also reviewed the benefit of consistent device use of CPAP for arrhythmia, diabetes, and depression. * Change auto CPAP pressure to 10-15 cmH2O * Service machine for possible malfunctioning * Notify me if snoring with mask or feeling that the pressure is too much or too little * Attempt to lose weight * Call this office if any problems using CPAP * Return for follow up in 1-2 months, or sooner if concerns arise Counseling Topics: Spare mask, Weight loss health impact Visit Type: In Office Other Participants: Spouse/Significant Other Time Spent with Patient (minutes): 23 Provider Statement: I spent 100% of the Face to Face Visit with the patient with greater than 50% spent counseling the patient and coordination of care.
== END 2020-07-03 10:50 | disposition home or self-care (01) ==
LOC: SC 10:49
PROVIDERS: ATTEND Nurse Practitioner Family
DX: G47.33 Obstructive sleep apnea (adult) (pediatric) (principal); E66.9 Obesity, unspecified; Z68.33 Body mass index [BMI] 33.0-33.9, adult
CPT/HCPCS: 99213; G0463; 99212

== ENCOUNTER 2020-08-03 10:49 | Outpatient (CLI) | payer MEDICARE, BC ==
--- NOTE | 2020-08-03 11:41 | SLEEP CARE CONSULTATION ---
Information from patient questionnaire entered by Gabriella Feng. I have reviewed and concur with the information entered by Gabriella Feng. This document represents the service I personally performed and the decisions made by , Janey Sarmiento ARNP. History of Present Illness Service Date and Time: 08/03/2020 1049 Previous diagnosis: Moderate, Obstructive Sleep Apnea-Hypopnea Syndrome AHI: 16.7 (in 2006) Reason for follow up: one month (with pressure change) Equipment type: CPAP Equipment obtained from: [employer] (getting supplies as needed) Mask style: Full face Mask brand: Respironics (Dreamwear) Backup mask available: Yes (old mask) Last cushion change: 1 month Prior sleep studies: Yes Year and Where: [address] - [facility] Type of Sleep Study: Polysomnography HPI additional information: KENNY LOZOYA was diagnosed to have moderate, AHI 16.7, obstructive sleep apnea-hypopnea syndrome and returned today with son for CPAP therapy one month pressure change follow-up. CPAP Compliance Data - Data Reviewed with Patient Average duration of nightly device use: 10 hr 29 min Compliance rate %: 100 Current pressure setting (cmH2O): 10-15 Humidity settin Heated hose settin Average residual AHI: 7.8 Central apnea: 1.2 Obstructive apnea: 3.2 Hypopnea: 3.5 Average large leak: 1 hr 9 min Subjective Patient concerns: reports: mask discomfort, air blowing in eyes, mask leak noise (mask does not fit correctly and makes noise), dry mouth, nose, throat, other (maybe snore while using device). denies: aerophagia, condensation in mask/hose, nasal congestion, epistaxis Observed to snore while using device: No Current pressure setting perceived as: too low On therapy, patient: reports: sleeping better, awakening more refreshed, being more awake and alert during the day, more rested overall. denies: drowsiness while driving Initial [place] Sleepiness Scale score: 2 (in 2019 (0 in 2009)) Current [place] Sleepiness Scale score: 1 Allergies and Home Medications Home medication list reviewed: Yes (no new meds) Review of Systems Review of systems same as previous: Yes (no changes) Physical Exam Heart Rate: 68 O2 Saturation: 98 Height: 5 ft 6 in Weight: 211 lb 6.4 oz Body Mass Index: 34.1 BMI Classification: Obese Impression and Plan 1. Obstructive Sleep Apnea-Hypopnea Syndrome, moderate, with excellent treatment compliance and fair apnea control with mildly elevated residual AHI. On CPAP therapy, the patient has better sleep quality and is more rested overall. Current pressure setting is slightly ineffective but patient still has significant improvement of his sleep apnea and is satisfied with treatment. We will continue pressure at current setting and have him follow up next year. He is still having mask fit issues and would like to try a different style mask with the hose coming out of the front of the mask. I will write for a mask refitting. He gets dry mouth but states he does not use the humidifier and does not know where the chamber is that goes on the machine. I advised him to order one from the DME and use the humidifier to reduce oral dryness. He voiced understanding and agreement with plan. Patient's apnea severity and rationale for treatment to reduce apnea, improve sleep quality and reduce cardiovascular and cerebrovascular events was reviewed. I also reviewed the benefit of consistent device use of CPAP for arrhythmia, diabetes, and depression. * Continue auto CPAP pressure at 10-15 cmH2O * Mask refitting, would like to try the AirFit F20 * Notify me if snoring with mask or feeling that the pressure is too much or too little * Attempt to lose weight * Call this office if any problems using CPAP * Return for follow up in 1 year, or sooner if concerns arise Counseling Topics: Spare mask, Weight loss health impact Visit Type: In Office Other Participants: Child (Son) Time Spent with Patient (minutes): 23 Provider Statement: I spent 100% of the Face to Face Visit with the patient with greater than 50% spent counseling the patient and coordination of care.
== END 2020-08-03 10:50 | disposition home or self-care (01) ==
LOC: SC 10:49
PROVIDERS: ATTEND Nurse Practitioner Family
DX: G47.33 Obstructive sleep apnea (adult) (pediatric) (principal); E66.9 Obesity, unspecified; Z68.34 Body mass index [BMI] 34.0-34.9, adult
CPT/HCPCS: 99213; G0463; 99212

== ENCOUNTER 2020-08-15 10:16 | Outpatient (CLI) | payer MEDICARE, BC ==
[2020-08-15 10:44] LABS: CALCIUM 8.9 mg/dL (8.5-10.3); CREATININE 1.3 mg/dL (0.6-1.2); POTASSIUM 4.6 mmol/L (3.5-5.0)
[2020-08-15 11:58] LABS: ESTIMATED AVERAGE GLUCOSE 140 mg/dL (70-100); HEMOGLOBIN A1c% 6.5 % (4.27-6.07)
== END 2020-08-15 10:17 | disposition home or self-care (01) ==
LOC: LAB 10:16
PROVIDERS: ATTEND Family Medicine
DX: E11.9 Type 2 diabetes mellitus without complications (principal); G91.2 (Idiopathic) normal pressure hydrocephalus
CPT/HCPCS: 36415; 80048; 83036

== ENCOUNTER 2020-09-28 19:41 | Outpatient (CLI) | payer MEDICARE, BC ==
--- NOTE | 2020-09-29 00:25 | Ultrasound Report ---
PROCEDURE: Retroperitoneal INDICATIONS: URINRY INCONTINENCE TECHNIQUE: Real-time scanning was performed of the retroperitoneal organs, with image documentation. COMPARISON: CT abdomen/pelvis 08/28/2014. FINDINGS: Kidneys: Kidneys are normal in size. Right kidney measures 11.8 cm long; left kidney measures 11.3 cm long. Right renal cortical thickness is 1.0 cm; left renal cortical thickness is 1.2 cm. No david d masses, hydronephrosis, or nephrolithiasis. Simple cyst in the interpolar region of the left kidne y measuring up to 1.2 cm. Bladder: Pre-void bladder volume is 163 mL. Post-void residual is 63 mL. Pre-void images demonstra te no intraluminal masses or stones. On pre-void images, left ureteral jets are noted with color Dop pler interrogation. (Of note, ureteral jets may not be detectable in up to 25% of cases due to insuf ficient differences in specific gravity between ureteral and bladder urine). Miscellaneous: No free pelvic fluid. IMPRESSION: 1. No hydronephrosis or nephrolithiasis. 2. Post void residual bladder volume of 63 mL. Reviewed by: Bonilla Nance MD on 09/29/2020 12:24 AM PDT Approved by: Bonilla Nance MD on 09/29/2020 12:24 AM PDT Station ID: [id number]
== END 2020-09-28 19:42 | disposition home or self-care (01) ==
LOC: DI 19:41
PROVIDERS: ATTEND Family Medicine
DX: R32 Unspecified urinary incontinence (principal); G91.2 (Idiopathic) normal pressure hydrocephalus

== ENCOUNTER 2020-11-06 08:00 | Outpatient (CLI) | payer MEDICARE, BC ==
[2020-11-06 17:52] LABS: BASOPHILS # (AUTO) 0.1 10^3/uL (0.0-0.1); BASOPHILS % (AUTO) 0.7 %; EOSINOPHILS # (AUTO) 0.2 10^3/uL (0.0-0.7); EOSINOPHILS % (AUTO) 2.1 %; HCT - HEMATOCRIT 44.9 % (42.0-52.0); HGB - HEMOGLOBIN 14.2 g/dL (14.0-18.0); LYMPHOCYTES # (AUTO) 1.3 10^3/uL (1.5-3.5); LYMPHOCYTES % (AUTO) 15.7 %; MEAN CORPUSCULAR HEMOGLOBIN 33.1 pg (27.0-31.0); MEAN CORPUSCULAR HGB CONC 31.6 g/dL (32.0-36.0); MEAN CORPUSCULAR VOLUME 104.7 fL (80.0-94.0); MONOCYTES % (AUTO) 11.8 %; NEUTROPHILS # (AUTO) 5.8 10^3/uL (1.5-6.6); NEUTROPHILS % (AUTO) 69.2 %; PLT - PLATELET COUNT 259 10^3/uL (130-450); RED BLOOD COUNT 4.29 10^6/uL (4.70-6.10); RED CELL DISTRIBUTION WIDTH 12.4 % (12.0-15.0); WHITE BLOOD COUNT 8.4 x10^3/uL (4.8-10.8)
[2020-11-06 18:10] LABS: ALBUMIN/GLOBULIN RATIO 1.4 (1.0-2.2); ALKALINE PHOSPHATASE 47 IU/L (42-121); ALT ALANINE AMINOTRANSFERASE 24 IU/L (10-60); AST ASPARTATE AMINOTRANSFERASE 16 IU/L (10-42); BILIRUBIN,TOTAL 0.8 mg/dL (0.2-1.0); BUN - BLOOD UREA NITROGEN 31 mg/dL (6-20); CARBON DIOXIDE - CO2 22 mmol/L (21-32); CHLORIDE 104 mmol/L (101-111); CHOL/HDL RATIO 3.8 (<5.0); CHOLESTEROL 145 mg/dL; CREATININE 1.4 mg/dL (0.6-1.2); GFR - MDRD 48 (>89); GLUCOSE 114 mg/dL (70-100); HDL CHOLESTEROL 38 mg/dL; LDL CHOLESTEROL,CALCULATED 86 mg/dL; LDL/HDL RATIO 2.3 (<3.6); POTASSIUM 4.7 mmol/L (3.5-5.0); SODIUM 137 mmol/L (135-145); TOTAL PROTEIN 6.8 g/dL (6.7-8.2); TRIGLYCERIDES 103 mg/dL; VLDL CHOLESTEROL 21 mg/dL
[2020-11-06 18:12] LABS: CREATININE,URINE 148.5 mg/dL; MICROALBUM/CREATININE RATIO,UR 6.1 ug/mg (<30.0); MICROALBUMIN,URINE 0.9 mg/dL (0-300.0)
[2020-11-06 18:17] LABS: THYROID STIMULATING HORMONE 2.92 uIU/mL (0.34-5.60)
[2020-11-06 20:36] LABS: ESTIMATED AVERAGE GLUCOSE 143 mg/dL (70-100); HEMOGLOBIN A1c% 6.6 % (4.27-6.07)
== END 2020-11-06 23:59 | disposition home or self-care (01) ==
LOC: LAB.WCP 08:00
PROVIDERS: ATTEND Family Medicine
DX: E66.9 Obesity, unspecified (principal); E11.9 Type 2 diabetes mellitus without complications; R35.0 Frequency of micturition; G47.33 Obstructive sleep apnea (adult) (pediatric); G91.2 (Idiopathic) normal pressure hydrocephalus
CPT/HCPCS: 36415; 80053; 80061; 82043; 82570; 83036; 83721; 84443; 85025

== ENCOUNTER 2021-01-29 09:43 | Outpatient (CLI) | payer MEDICARE, BC ==
[2021-01-29 10:27] LABS: CALCIUM 9.1 mg/dL (8.5-10.3); CREATININE 1.2 mg/dL (0.6-1.2); POTASSIUM 4.5 mmol/L (3.5-5.0)
[2021-01-29 12:31] LABS: ESTIMATED AVERAGE GLUCOSE 183 mg/dL (70-100)
== END 2021-01-29 09:44 | disposition home or self-care (01) ==
LOC: LAB 09:43
PROVIDERS: ATTEND Family Medicine
DX: E11.9 Type 2 diabetes mellitus without complications (principal)
CPT/HCPCS: 36415; 80048; 83036

== ENCOUNTER 2021-05-15 15:17 | Outpatient (CLI) | payer MEDICARE, BC ==
[2021-05-15 15:44] LABS: CALCIUM 8.7 mg/dL (8.5-10.3); CREATININE 1.4 mg/dL (0.6-1.2); POTASSIUM 4.2 mmol/L (3.5-5.0)
[2021-05-15 15:58] LABS: CREATININE,URINE 179.7 mg/dL; MICROALBUM/CREATININE RATIO,UR 6.7 ug/mg (<30.0); MICROALBUMIN,URINE 1.2 mg/dL (0-300.0)
[2021-05-15 21:42] LABS: ESTIMATED AVERAGE GLUCOSE 157 mg/dL (70-100); HEMOGLOBIN A1c% 7.1 % (4.27-6.07)
== END 2021-05-15 15:18 | disposition home or self-care (01) ==
LOC: LAB 15:17
PROVIDERS: ATTEND Family Medicine
DX: E11.65 Type 2 diabetes mellitus with hyperglycemia (principal); E66.9 Obesity, unspecified; G91.2 (Idiopathic) normal pressure hydrocephalus
CPT/HCPCS: 36415; 80048; 82043; 82570; 83036

== ENCOUNTER 2022-04-22 12:09 | Outpatient (CLI) | payer MEDICARE, BC ==
[2022-04-22 12:21] LABS: BASOPHILS % (AUTO) 0.5 %; EOSINOPHILS # (AUTO) 0.1 10^3/uL (0.0-0.7); EOSINOPHILS % (AUTO) 1.5 %; HCT - HEMATOCRIT 45.8 % (42.0-52.0); HGB - HEMOGLOBIN 14.6 g/dL (14.0-18.0); LYMPHOCYTES # (AUTO) 1.3 10^3/uL (1.5-3.5); LYMPHOCYTES % (AUTO) 14.5 %; MEAN CORPUSCULAR HEMOGLOBIN 32.5 pg (27.0-31.0); MEAN CORPUSCULAR HGB CONC 31.9 g/dL (32.0-36.0); MEAN PLATELET VOLUME 11.4 fL (7.4-11.4); MONOCYTES # (AUTO) 0.9 10^3/uL (0.0-1.0); NEUTROPHILS # (AUTO) 6.4 10^3/uL (1.5-6.6); PLT - PLATELET COUNT 300 10^3/uL (130-450); RED BLOOD COUNT 4.49 10^6/uL (4.70-6.10); WHITE BLOOD COUNT 8.7 x10^3/uL (4.8-10.8)
[2022-04-22 12:49] LABS: ESTIMATED AVERAGE GLUCOSE 169 mg/dL (70-100); HEMOGLOBIN A1c% 7.5 % (4.27-6.07)
[2022-04-22 12:54] LABS: CREATININE,URINE 100.6 mg/dL; MICROALBUMIN,URINE 0.6 mg/dL (0-300.0)
[2022-04-22 12:59] LABS: THYROID STIMULATING HORMONE 2.52 uIU/mL (0.34-5.60)
[2022-04-22 13:25] LABS: ALBUMIN 3.8 g/dL (3.2-5.5); ALBUMIN/GLOBULIN RATIO 1.3 (1.0-2.2); ALKALINE PHOSPHATASE 63 IU/L (42-121); ALT ALANINE AMINOTRANSFERASE 20 IU/L (10-60); AST ASPARTATE AMINOTRANSFERASE 13 IU/L (10-42); BILIRUBIN,TOTAL 0.8 mg/dL (0.2-1.0); BUN - BLOOD UREA NITROGEN 31 mg/dL (6-20); CALCIUM 9.7 mg/dL (8.5-10.3); CARBON DIOXIDE - CO2 24 mmol/L (21-32); CHLORIDE 101 mmol/L (101-111); CHOL/HDL RATIO 4.8 (<5.0); CHOLESTEROL 162 mg/dL; CREATININE 1.3 mg/dL (0.6-1.2); GFR - MDRD 52 (>89); GLUCOSE 187 mg/dL (70-100); HDL CHOLESTEROL 34 mg/dL; LDL CHOLESTEROL,CALCULATED 105 mg/dL; LDL/HDL RATIO 3.1 (<3.6); POTASSIUM 4.5 mmol/L (3.5-5.0); SODIUM 138 mmol/L (135-145); TOTAL PROTEIN 6.7 g/dL (6.7-8.2); TRIGLYCERIDES 115 mg/dL; VLDL CHOLESTEROL 23 mg/dL
== END 2022-04-22 12:10 | disposition home or self-care (01) ==
LOC: LAB 12:09
PROVIDERS: ATTEND Family Medicine
DX: E11.65 Type 2 diabetes mellitus with hyperglycemia (principal); E66.9 Obesity, unspecified; M15.9 Polyosteoarthritis, unspecified; G91.2 (Idiopathic) normal pressure hydrocephalus
CPT/HCPCS: 36415; 80053; 80061; 82043; 82570; 83036; 83721; 84443; 85025

== ENCOUNTER 2022-04-24 15:19 | Outpatient (CLI) | payer MEDICARE, BC ==
[2022-04-24 16:03] VITALS: BP 148/70
--- NOTE | 2022-04-24 16:03 | SLEEP CARE CONSULTATION ---
Information from patient questionnaire entered by Enedelia Renteria. I have reviewed and concur with the information entered by Enedelia Renteria. This document represents the service I personally performed and the decisions made by me, Janey Sarmiento ARNP. History of Present Illness Service Date and Time: 04/24/2022 1519 Previous diagnosis: Moderate, Obstructive Sleep Apnea-Hypopnea Syndrome AHI: 16.7 (in 2006) Reason for follow up: annual (LAST SEEN 07/2020) Accompanied by: funmilayo Equipment type: CPAP ([employer] Dreamstation, recertified; SD CARD NEEDED) Equipment obtained from: [employer] (getting supplies as needed) Mask style: Full face (Mirage Quattro) Backup mask available: Yes (old mask) Last cushion change: 1 month Prior sleep studies: Yes Year and Where: 2006 - [facility] [place] Type of Sleep Study: Polysomnography HPI additional information: KENNY LOZOYA was diagnosed to have moderate, AHI 16.7, obstructive sleep apnea-hypopnea syndrome and returned today for CPAP therapy annual follow-up. Sleep Study - Results Type of Sleep Study: Polysomnography Prior sleep studies: Yes Year and Where: 2006 - [facility] [place] CPAP Compliance Data - Data Reviewed with Patient Average duration of nightly device use: 10.7 hours Compliance rate %: 99 (30/30 days used) Current pressure setting (cmH2O): 4-20 Average residual AHI: 13.9 Subjective Patient concerns: reports: mask leak noise, dry mouth, nose, throat. denies: aerophagia, mask discomfort, air blowing in eyes, condensation in mask/hose, nasal congestion, epistaxis Observed to snore while using device: No Current pressure setting perceived as: comfortable On therapy, patient: denies: drowsiness while driving (does not drive) Initial [place] Sleepiness Scale score: 2 (in 2019 (0 in 2009)) Current [place] Sleepiness Scale score: 8 (04/24/22) Allergies and Home Medications Known drug allergies: Yes (hydrocodone, latex) Drug allergies reviewed: Yes Home medication list reviewed: Yes (Glimeprimide) Review of Systems Review of systems same as previous: Yes (no changes) Physical Exam Vital signs obtained and entered by: ENEDELIA Burks MA Blood Pressure: 148/70 (LEFT ARM) Cuff size: regular Heart Rate: 90 O2 Saturation: 97 Height: 5 ft 6 in Weight: 215 lb 9.6 oz Body Mass Index: 34.7 BMI Classification: Obese Impression and Plan 1. Obstructive Sleep Apnea-Hypopnea Syndrome, moderate, with good treatment compliance and fair apnea control with elevation of residual AHI. His states he is sleeping more and appears more tired during the day. He just recei john a replacement part from [employer] for his Dreamstation and he started using it but we do not have access to his device. We contacted Yary with [employer] and she will be setting up with and patient to come and get the washing machine repairer. The modem was not put in the new machine from the old one. The patient is hard of hearing and according to has some bad days with cognition because of his CP shunt not draining effectively when he sleeps longer periods like he has been doing. She will call Yary and set up a time for her to be shown how to deal with his CPAP. The replacement device is now set at 4-20 cmH2O but should update to his previous pressure settings of 10-15 cmH2O one it has the modem placed in it. I will have them make a follow up in 1-2 months to recheck settings on his machine and treatment efficiency. Patient's apnea severity and rationale for treatment to reduce apnea, improve sleep quality and reduce cardiovascular and cerebrovascular events was reviewed. I also reviewed the benefit of consistent device use of CPAP for arrhythmia, diabetes and depression. 2. Obesity, unspecified. Currently patients BMI is 34.7. Obesity increases the risk of apnea, CPAP pressure requirements and overall health risks especially cardiovascular and diabetes. Thus patient is advised to lose weight. * Continue auto CPAP pressure at 10-15 cmH2O * Notify me if snoring with mask or feeling that the pressure is too much or too little * Attempt to lose weight * Call this office if any problems using CPAP * Return for follow up in 1-2 months, or sooner if concerns arise Counseling Topics: Spare mask, Weight loss health impact Visit Type: In Office Other Participants: Spouse/Significant Other, Other (grandson) Time Spent with Patient (minutes): 23 Provider Statement: I spent 100% of the Face to Face Visit with the patient with greater than 50% spent counseling the patient and coordination of care.
== END 2022-04-24 15:20 | disposition home or self-care (01) ==
LOC: SC 15:19
PROVIDERS: ATTEND Nurse Practitioner Family
DX: G47.33 Obstructive sleep apnea (adult) (pediatric) (principal); E66.9 Obesity, unspecified; Z68.34 Body mass index [BMI] 34.0-34.9, adult
CPT/HCPCS: 99213; G0463; 99212

== ENCOUNTER 2022-06-03 11:47 | Outpatient (CLI) | payer MEDICARE, BC | END 2022-06-03 11:48 | disposition home or self-care (01) | LOC: SC 11:47 | PROVIDERS: ATTEND Nurse Practitioner Family | DX: Z53.9 Procedure and treatment not carried out, unspecified reason (principal) ==

== ENCOUNTER 2022-06-27 13:43 | Outpatient (CLI) | payer MEDICARE, BC ==
--- NOTE | 2022-06-27 13:37 | SLEEP CARE CONSULTATION ---
Information from patient questionnaire entered by Enedelia Renteria. I have reviewed and concur with the information entered by Enedelia Renteria. This document represents the service I personally performed and the decisions made by me, Janey Sarmiento ARNP. History of Present Illness Service Date and Time: 06/27/2022 1320 Previous diagnosis: Moderate, Obstructive Sleep Apnea-Hypopnea Syndrome AHI: 16.7 (in 2006) Reason for follow up: other (2 MONTH F/U) Accompanied by: Spouse Equipment type: CPAP ([employer]ON Dreamstation, recertified; SD CARD NEEDED) Equipment obtained from: [employer] (getting supplies as needed) Mask style: Full face (Mirage Quattro) Backup mask available: Yes (old mask) Prior sleep studies: Yes Year and Where: 2006 - [facility] Type of Sleep Study: Polysomnography HPI additional information: KENNY LOZOYA was diagnosed to have moderate, AHI 16.7, obstructive sleep apnea-hypopnea syndrome and returns via telehealth visit today with spouse for CPAP therapy two month follow-up. Sleep Study - Results Type of Sleep Study: Polysomnography Prior sleep studies: Yes Year and Where: 2006 - [facility] CPAP Compliance Data - Data Reviewed with Patient Average duration of nightly device use: 12 HRS 4 MINS 22 SECS Compliance rate %: 100 (04/04/22-06/02/22; 60/60 days used) Current pressure setting (cmH2O): 10-15 (avg 90% 14.0) Average residual AHI: 8 Central apnea: 2.0 Obstructive apnea: 3.2 Hypopnea: 2.8 Average large leak: 15 mins 21 secs Subjective Patient concerns: reports: mask leak noise. denies: aerophagia, mask discomfort, air blowing in eyes, condensation in mask/hose, nasal congestion, dry mouth, nose, throat, epistaxis Observed to snore while using device: Yes Current pressure setting perceived as: too low On therapy, patient: reports: sleeping better, awakening more refreshed, being more awake and alert during the day, more rested overall. denies: drowsiness while driving (does not drive alone) Initial [place] Sleepiness Scale score: 2 (in 2019 (0 in 2009)) Current [place] Sleepiness Scale score: 8 (06/27/22) Allergies and Home Medications Known drug allergies: Yes (as listed) Drug allergies reviewed: Yes Home medication list reviewed: Yes (Ozempic) Allergy and home medication list: Allergies hydrocodone Allergy (Verified 06/26/22 14:29) Hives latex Adverse Reaction (Verified 06/26/22 14:29) Rash Review of Systems Review of systems same as previous: Yes (shoulder pain - physical therapy) Physical Exam Vital signs obtained and entered by: ENEDELIA Burks MA Height: 5 ft 6 in (PER PT ) Weight: 210 lb (PER PT ) Body Mass Index: 33.9 BMI Classification: Obese Impression and Plan 1. Obstructive Sleep Apnea-Hypopnea Syndrome, moderate, with good treatment com pliance and fair apnea control with elevated residual AHI. On CPAP therapy, the patient has better sleep quality and is more rested overall. Patient complains of the pressure feeling too low and his is hearing some snoring when he is using CPAP. The patients pressure will be changed to autoCPAP 11-17 cmH20 for elevation of residual AHI. Patient advised to contact me if pressure change is uncomfortable so that it can be adjusted. Goals for apnea control discussed. Patient's apnea severity and rationale for treatment to reduce apnea, improve sleep quality and reduce cardiovascular and cerebrovascular events was reviewed. I also reviewed the benefit of consistent device use of CPAP for arrhythmia, diabetes, and depression. 2. Obesity, unspecified. Currently patients BMI is 33.9. Obesity increases the risk of apnea, CPAP pressure requirements and overall health risks especially cardiovascular and diabetes. Thus patient is advised to lose weight. * Change auto CPAP pressure to 11-17 cmH2O * Notify me if snoring with mask or feeling that the pressure is too much or too little * Attempt to lose weight * Call this office if any problems using CPAP * Return for follow up in 1 year, or sooner if concerns arise Counseling Topics: Spare mask, Weight loss health impact Visit Type: Telehealth Phone Video Type: Doximity Patient Location: Home Other Participants: Spouse/Significant Other Location of Provider: Office Patient agrees and consents to this telehealth visit type: Yes Patient agrees to have their insurance billed: Yes Time Spent with Patient (minutes): 12 Provider Statement: I spent 100% of the Telehealth Phone Call with the patient with greater than 50% spent counseling the patient and coordination of care.
== END 2022-06-27 13:44 | disposition home or self-care (01) ==
LOC: SC 13:43
PROVIDERS: ATTEND Nurse Practitioner Family
DX: G47.33 Obstructive sleep apnea (adult) (pediatric) (principal); E66.9 Obesity, unspecified; Z68.33 Body mass index [BMI] 33.0-33.9, adult

== ENCOUNTER 2022-07-21 10:10 | Outpatient (CLI) | payer MEDICARE, BC ==
[2022-07-21 10:27] LABS: CALCIUM 9.1 mg/dL (8.5-10.3); CREATININE 1.3 mg/dL (0.6-1.2); POTASSIUM 4.7 mmol/L (3.5-5.0)
[2022-07-21 11:45] LABS: ESTIMATED AVERAGE GLUCOSE 192 mg/dL (70-100); HEMOGLOBIN A1c% 8.3 % (4.27-6.07)
== END 2022-07-21 10:11 | disposition home or self-care (01) ==
LOC: LAB 10:10
PROVIDERS: ATTEND Family Medicine
DX: E11.65 Type 2 diabetes mellitus with hyperglycemia (principal)
CPT/HCPCS: 36415; 80048; 83036

== ENCOUNTER 2022-11-15 11:12 | Outpatient (CLI) | payer MEDICARE, BC ==
[2022-11-15 11:40] LABS: CALCIUM 8.6 mg/dL (8.5-10.3); CREATININE 1.4 mg/dL (0.6-1.2); POTASSIUM 4.6 mmol/L (3.5-5.0)
[2022-11-15 12:39] LABS: ESTIMATED AVERAGE GLUCOSE 163 mg/dL (70-100); HEMOGLOBIN A1c% 7.3 % (4.27-6.07)
== END 2022-11-15 11:13 | disposition home or self-care (01) ==
LOC: LAB 11:12
PROVIDERS: ATTEND Family Medicine
DX: E11.65 Type 2 diabetes mellitus with hyperglycemia (principal)
CPT/HCPCS: 36415; 80048; 83036

== ENCOUNTER 2023-03-30 14:08 | Outpatient (CLI) | payer MEDICARE, BC ==
[2023-03-30 14:56] LABS: ESTIMATED AVERAGE GLUCOSE 197 mg/dL (70-100); HEMOGLOBIN A1c% 8.5 % (4.27-6.07)
[2023-03-30 15:01] LABS: CALCIUM 9.2 mg/dL (8.5-10.3); CREATININE 1.4 mg/dL (0.6-1.3); POTASSIUM 4.5 mmol/L (3.5-4.5)
== END 2023-03-30 14:09 | disposition home or self-care (01) ==
LOC: LAB 14:08
PROVIDERS: ATTEND Family Medicine
DX: E11.65 Type 2 diabetes mellitus with hyperglycemia (principal); G91.2 (Idiopathic) normal pressure hydrocephalus; F02.80 Dementia in other diseases classified elsewhere, unspecified severity, without behavioral disturbance, psychotic disturbance, mood disturbance, and anxiety
CPT/HCPCS: 36415; 80048; 83036

== ENCOUNTER 2023-05-06 12:26 | Outpatient (CLI) | payer MEDICARE, BC | END 2023-05-06 12:27 | disposition critical access hospital (66) | LOC: EMS 12:26 | DX: R53.1 Weakness (principal); S09.90XA Unspecified injury of head, initial encounter; W18.30XA Fall on same level, unspecified, initial encounter | CPT/HCPCS: A0425; A0429 ==

== ENCOUNTER 2023-05-06 12:35 | Emergency (ER) | payer MEDICARE, BC ==
--- NOTE | 2023-05-06 12:56 | ED Physician Documentation ---
History of Present Illness - Stated complaint Stated Complaint: GLF/WEAKNESS - Chief complaint Chief Complaint: General - History obtained from History obtained from: Patient, EMS - History of Present Illness Timing: Today Pain level max: 0 Pain level now: 0 - Additonal information Additional information: Patient is an 87-year-old male who presents to the emergency department after reported ground-level fall at home today. Patient states that he has no injuries. EMS states that they noticed small amount of bleeding from the left nare. Patient is not on blood thinners. No loss of consciousness. He tripped and fell over a rug. He states he was having trouble standing up again so 911 was called. Reportedly the patient tested positive for COVID yesterday. The patient states he does not have COVID and his test was negative. No fevers. No chills. Mild dry cough. No congestion. No nausea or vomiting. Patient is very hard of hearing. 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 HEENT: Cataracts, Tonsil/Adenoidectomy - Present Medications Home Medications: Ambulatory Orders Medication Instructions Recorded Confirmed Celecoxib [Celebrex] 200 mg PO DAILY 06/02/14 05/06/23 Citalopram [CeleXA] 20 mg PO DAILY 06/02/14 05/06/23 metFORMIN [Glucophage] 500 mg PO BID 06/02/14 05/06/23 Acetaminophen [Tylenol Arthritis] 650 mg PO Q6HR PRN 10/19/17 05/06/23 Semaglutide [Ozempic] See Rx Instructions .ROUTE .COMPLEX 06/27/22 05/06/23 - Allergies Allergies/Adverse Reactions: Allergies Allergy/AdvReac Type Severity Reaction Status Date / Time hydrocodone Allergy Hives Verified 05/06/23 13:19 latex AdvReac Rash Verified 05/06/23 13:19 - Social History Does the pt smoke?: No Smoking Status: Never smoker Does the pt drink ETOH?: No Does the pt have substance abuse?: No - Immunizations Immunizations are current?: Yes PD ED PE NORMAL - Vitals Vital signs reviewed: Yes - General General: Alert and oriented X 3, No acute distress - HEENT HEENT: Atraumatic (no scalp hematomas or palpable skull fractures), PERRL, Moist mucous membranes, Pharynx benign, Other (Small amount of blood in the left nare. No facial bone tenderness or deformity.) - Neck Neck: Supple, no meningeal sign, No bony TTP - Cardiac Cardiac: RRR, Strong equal pulses - Respiratory Respiratory: No respiratory distress, Clear bilaterally - Abdomen Abdomen: Soft, Non tender, Non distended - Back Back: No CVA TTP, No spinal TTP - Derm Derm: Warm and dry - Extremities Extremities: No deformity, No tenderness to palpate, Normal ROM s pain - Neuro Neuro: Alert and oriented X 3, user experience architect 2-12 intact, No motor deficit, No sensory d eficit, Normal speech Eye Opening: Spontaneous Motor: Obeys Commands Verbal: Oriented GCS Score: 15 - Psych Psych: Normal mood, Normal affect Results - Vitals Vitals: Vital Signs - 24 hr 05/06/23 05/06/23 05/06/23 12:47 16:52 18:07 Temperature 37.1 C 36.7 C Heart Rate 64 66 72 Respiratory 18 20 20 Rate Blood Pressure 147/75 H 136/66 H 132/64 H O2 Saturation 98 100 96 Oxygen O2 Source Room air - Labs Labs: Laboratory Tests 05/06/23 05/06/23 05/06/23 13:15 13:20 13:20 WBC 8.6 RBC 4.23 L Hgb 13.4 L Hct 42.0 MCV 99.3 H MCH 31.7 H MCHC 31.9 L RDW 12.7 Plt Count 239 MPV 11.7 H Neut # (Auto) 6.3 Lymph # (Auto) 0.9 L [place] # (Auto) 1.4 H Eos # (Auto) 0.0 Baso # (Auto) 0.0 Absolute Nucleated RBC 0.00 Nucleated RBC % 0.0 Sodium 136 Potassium 4.0 Chloride 105 Carbon Dioxide 23 Anion Gap 8.0 BUN 26 H Creatinine 1.4 H Estimated GFR (MDRD) 48 L Glucose 170 H Calcium 9.1 Total Bilirubin 0.4 AST 16 ALT 20 Alkaline Phosphatase 63 Total Protein 6.5 Albumin 3.9 Globulin 2.6 Albumin/Globulin Ratio 1.5 Lipase < 10 L Urine Color Urine Clarity Urine pH Ur Specific [place] Urine Protein Urine Glucose (UA) Urine Ketones Urine Occult Blood Urine Nitrite Urine Bilirubin Urine Urobilinogen Ur Leukocyte Esterase Urine RBC Urine WBC Ur Squamous Epith Cells Urine Bacteria Ur Microscopic Review Urine Culture Comments Nasal Adenovirus (PCR) NOT DETECTED Nasal B. parapertussis DNA (PCR) NOT DETECTED Nasal Coronavir 229E PCR NOT DETECTED Nasal Coronavir HKU1 PCR NOT DETECTED Nasal Coronavir NL63 PCR NOT DETECTED Nasal Coronavir OC43 PCR NOT DETECTED Nasal Enterovir/Rhinovir PCR NOT DETECTED Nasal Influenza B PCR NOT DETECTED Nasal Influenza A PCR NOT DETECTED Nasal Parainfluen 1 PCR NOT DETECTED Nasal Parainfluen 2 PCR NOT DETECTED Nasal Parainfluen 3 PCR NOT DETECTED Nasal Parainfluen 4 PCR NOT DETECTED Nasal RSV (PCR) NOT DETECTED Nasal B.pertussis DNA PCR NOT DETECTED Nasal C.pneumoniae (PCR) NOT DETECTED Romario Human Metapneumo PCR NOT DETECTED Nasal M.pneumoniae (PCR) NOT DETECTED Nasal SARS-CoV-2 (PCR) DETECTED A 05/06/23 17:22 WBC RBC Hgb Hct MCV MCH MCHC RDW Plt Count MPV Neut # (Auto) Lymph # (Auto) [place] # (Auto) Eos # (Auto) Baso # (Auto) Absolute Nucleated RBC Nucleated RBC % Sodium Potassium Chloride Carbon Dioxide Anion Gap BUN Creatinine Estimated GFR (MDRD) Glucose Calcium Total Bilirubin AST ALT Alkaline Phosphatase Total Protein Albumin Globulin Albumin/Globulin Ratio Lipase Urine Color YELLOW Urine Clarity CLEAR Urine pH 5.5 Ur Specific [place] 1.025 Urine Protein NEGATIVE Urine Glucose (UA) NEGATIVE Urine Ketones NEGATIVE Urine Occult Blood SMALL H Urine Nitrite NEGATIVE Urine Bilirubin NEGATIVE Urine Urobilinogen 0.2 (NORMAL) Ur Leukocyte Esterase NEGATIVE Urine RBC 0-5 Urine WBC 0-3 Ur Squamous Epith Cells RARE Squamous Urine Bacteria None Seen Ur Microscopic Review INDICATED Urine Culture Comments NOT INDICATED Nasal Adenovirus (PCR) Nasal B. parapertussis DNA (PCR) Nasal Coronavir 229E PCR Nasal Coronavir HKU1 PCR Nasal Coronavir NL63 PCR Nasal Coronavir OC43 PCR Nasal Enterovir/Rhinovir PCR Nasal Influenza B PCR Nasal Influenza A PCR Nasal Parainfluen 1 PCR Nasal Parainfluen 2 PCR Nasal Parainfluen 3 PCR Nasal Parainfluen 4 PCR Nasal RSV (PCR) Nasal B.pertussis DNA PCR Nasal C.pneumoniae (PCR) Romario Human Metapneumo PCR Nasal M.pneumoniae (PCR) Nasal SARS-CoV-2 (PCR) - Rads (name of study) head CT Relevant Findings:: Final report received, See rad report cervical spine CT Relevant Findings:: Final report received, See rad report maxillofacial CT Relevant Findings:: Final report received, See rad report cxr Relevant Findings:: Final report received, See rad report PD Medical Decision Making - ED course Complexity details: reviewed results, re-evaluated patient, considered differential, d/w patient ED course: 87-year-old male status post ground-level fall at home. He is ambulating without difficulty here with a walker. He was given IV fluids. He has started Paxlovid at home, we will adjust this for his renal function. No acute findings on head CT, maxillofacial CT, cervical spine CT. Patient did have a mild left- sided epistaxis which resolved on its own. Tolerating p.o. without difficulty here. No focal neurological deficits. I did discuss the case with his plpdmrda-xi-alt who is a physician in [place]. Also discussed with his . Recommend the patient use a walker at home. He states that he has 1 but only u ses it outside. Recommend that he use the walker at all times. Patient and family counseled regarding signs and symptoms for which I believe and urgent re- evaluation would be necessary. Patient with good understanding of and agreement to plan and is comfortable going home at this time This document was made in part using voice recognition software. While efforts are made to proofread this document, sound alike and grammatical errors may occur. Departure - Departure Disposition: Home, Self Care Clinical Impression: COVID-19 Fall Qualifiers: Encounter type: initial encounter Qualified Code(s): W19.XXXA - Unspecified fa ll, initial encounter Condition: Good Instructions: ED Viral Syndrome Follow-Up: your,doctor in 1 week [Other] Comments: Please follow-up with your doctor for further care. You have tested positive for COVID today. Your laboratory testing does not show any acute abnormalities. You need to be using a walker inside your house as this can be causing weakness. You do not have a urinary tract infection. You are ambulating well with a walker here. You can continue the Paxlovid. You need to be on a renally dosed Paxlovid so rather than taking 2 pills of the nirmatrelvir, only take 1 pill of this twice a day. Also take 1 pill twice a day of the ritonavir as you have been. Forms: PCP List Discharge Date/Time: 05/06/23 18:00
[2023-05-06 13:27] LABS: BASOPHILS % (AUTO) 0.3 %; EOSINOPHILS % (AUTO) 0.1 %; HGB - HEMOGLOBIN 13.4 g/dL (14.0-18.0); LYMPHOCYTES # (AUTO) 0.9 10^3/uL (1.5-3.5); MEAN CORPUSCULAR HEMOGLOBIN 31.7 pg (27.0-31.0); MEAN CORPUSCULAR HGB CONC 31.9 g/dL (32.0-36.0); MEAN CORPUSCULAR VOLUME 99.3 fL (80.0-94.0); MEAN PLATELET VOLUME 11.7 fL (7.4-11.4); MONOCYTES # (AUTO) 1.4 10^3/uL (0.0-1.0); MONOCYTES % (AUTO) 16.2 %; NEUTROPHILS # (AUTO) 6.3 10^3/uL (1.5-6.6); NEUTROPHILS % (AUTO) 72.9 %; PLT - PLATELET COUNT 239 10^3/uL (130-450); RED BLOOD COUNT 4.23 10^6/uL (4.70-6.10); RED CELL DISTRIBUTION WIDTH 12.7 % (12.0-15.0); WHITE BLOOD COUNT 8.6 x10^3/uL (4.8-10.8)
[2023-05-06 13:43] LABS: ALBUMIN 3.9 g/dL (3.2-5.5); ALBUMIN/GLOBULIN RATIO 1.5 (1.0-2.2); ALKALINE PHOSPHATASE 63 IU/L (42-121); ALT ALANINE AMINOTRANSFERASE 20 IU/L (10-60); AST ASPARTATE AMINOTRANSFERASE 16 IU/L (10-42); BILIRUBIN,TOTAL 0.4 mg/dL (0.2-1.0); BUN - BLOOD UREA NITROGEN 26 mg/dL (6-20); CALCIUM 9.1 mg/dL (8.5-10.3); CARBON DIOXIDE - CO2 23 mmol/L (21-32); CHLORIDE 105 mmol/L (101-111); CREATININE 1.4 mg/dL (0.6-1.3); GFR - MDRD 48 (>89); GLUCOSE 170 mg/dL (74-104); LIPASE < 10 U/L (11-82); SODIUM 136 mmol/L (135-145); TOTAL PROTEIN 6.5 g/dL (6.4-8.9)
[2023-05-06 14:43] LABS: B. PARAPERTUSSIS- RESP PCR PAN NOT DETECTED; B. PERTUSSIS- RESP PCR PANEL NOT DETECTED; C. PNEUMONIAE- RESP PCR PANEL NOT DETECTED; CORONAVIRUS 229E-RESP PCR NOT DETECTED; CORONAVIRUS HKU1-RESP PCR NOT DETECTED; CORONAVIRUS NL63-RESP PCR NOT DETECTED; CORONAVIRUS OC43-RESP PCR NOT DETECTED; HUMAN METAPNEUMOVIRUS NOT DETECTED; INFLUENZA A- RESP PCR PANEL NOT DETECTED; INFLUENZA B - RESP PCR PANEL NOT DETECTED; M. PNEUMONIAE- RESP PCR PANEL NOT DETECTED; PARAINFLUENZA VIRUS 1 NOT DETECTED; PARAINFLUENZA VIRUS 2 NOT DETECTED; PARAINFLUENZA VIRUS 3 NOT DETECTED; PARAINFLUENZA VIRUS 4 NOT DETECTED; RHINOVIRUS/ENTEROVIRUS NOT DETECTED; RSV- RESP PCR PANEL NOT DETECTED
[2023-05-06 14:46] LABS: SARS-CoV-2 -RESP PCR PANEL DETECTED
--- NOTE | 2023-05-06 14:54 | XRAY Report ---
PROCEDURE: Chest 1V INDICATIONS: cough TECHNIQUE: One view of the chest was acquired. COMPARISON: None. FINDINGS: Surgical changes and devices: Partially seen CHAR CONVEYOR TENDER CELLAR shunt. Partially seen intrathecal device. Lungs and pleura: Low lung volumes. No dense consolidation or pleural effusion. Possible mild opacit y at the left base. Mediastinum: Heart size is at the upper limit of normal. Bones and chest wall: Degenerative changes. IMPRESSION: Limited single view portable radiograph with low lung volumes. Possible mild opacity at the left base may represent aspiration, atelectasis, or early airspace infection. Reviewed by: Doyle Kendall MD on 05/06/2023 2:53 PM PST Approved by: Doyle Kendall MD on 05/06/2023 2:53 PM PST Station ID: [id number]
--- NOTE | 2023-05-06 15:28 | CT Report ---
PROCEDURE: Maxillofacial WO INDICATIONS: fall, facial injury TECHNIQUE: Noncontrast 1.5 mm thick axial images acquired from the mandible through the frontal sinuses, with co bel and sagittal reformatting. 3-D reformatted images were performed. For radiation dose reducti on, the following was used: automated exposure control, adjustment of mA and/or kV according to gino ent size. COMPARISON: Correlation is made with the accompanying imaging. FINDINGS: Image quality: There is artifact associated with the metallic dental work. Motion artifact is not ed. Bones and teeth: Orbital thompson are intact. Sinus thompson show no fracture or deformity. Nasal bones and septum are intact. Visualized portions of the mandible demonstrate no fractures or subluxation. Zygomatic arches are intact. Pterygoid plates are intact. Visualized portions of the skull base an d auditory canals are intact. Sinuses: Mild mucosal thickening can be seen within the inferior maxillary sinuses. Mastoid air cells are aerated. Soft tissues: Soft tissue injury soft tissue gas can be seen involving the left aspect of the nose. No radiopaque foreign bodies are seen. Vascular: Visualized vascular structures appear normal in the absence of contrast. Bony vascular fo ramina and canals are intact. There is partial visualization of prominent ventricles. IMPRESSION: Soft tissue injury seen involving the left side of the nose, with soft tissue gas. No displaced fractures are identified. Reviewed by: Giovanny Person MD on 05/06/2023 2:27 PM [facility] Approved by: Giovanny Person MD on 05/06/2023 2:27 PM [facility] Station ID: [id number]
--- NOTE | 2023-05-06 15:30 | CT Report ---
PROCEDURE: Cervical Spine WO INDICATIONS: fall, neck extension injury TECHNIQUE: Noncontrast 3 mm thick sections acquired from the skull base to the T4 level. Sagittal and coronal r eformats were then constructed. For radiation dose reduction, the following was used: automated exp osure control, adjustment of mA and/or kV according to patient size. COMPARISON: Correlation is made with the accompanying imaging. FINDINGS: Image quality: Excellent. Bones: No fractures or dislocations. Visualized superior ribs are intact. Focal degenerative change can be seen involving the C1-C2 interface anteriorly. There is at least mod erate disc space narrowing seen at C3-C4, with moderate disc space narrowing at C4-C5. At least moder ate disc space narrowing is seen at C5-C6. Moderate severe disc space narrowing can be seen at C6-C7. Posterior directed osteophytes are seen, which are overall worst inferiorly. Multiple levels of sign ificant facet hypertrophy can be seen, right worse than left. Soft tissues: Prevertebral soft tissues are normal in thickness. No paravertebral hematomas. No ap ical pneumothoraces. Right-sided ventriculoperitoneal shunt catheter tubing is partially seen. IMPRESSION: No acute cervical spine fracture can be seen. Multiple levels of significant cervical spine degenerative change can be seen, which are worst in yany earance. Reviewed by: Giovanny Person MD on 05/06/2023 2:29 PM [place] Approved by: Giovanny Person MD on 05/06/2023 2:29 PM [facility] Station ID: [id number]
--- NOTE | 2023-05-06 15:32 | CT Report ---
PROCEDURE: Head WO INDICATIONS: fall, head/face injury TECHNIQUE: Noncontrast 4.5 mm thick angled axial sections acquired from the foramen magnum to the vertex. For r adiation dose reduction, the following was used: automated exposure control, adjustment of mA and/or kV according to patient size. COMPARISON: 07/20/2019, 09/18/2017 Correlation is made with the accompanying imaging. FINDINGS: Image quality: Excellent. CSF spaces: There is a right parietal approach ventriculostomy catheter seen, with the tip crossing the midline and seen within the left lateral ventricle. There is stable dilatation seen of the latera l ventricles. No findings of acute hydrocephalus can be seen. Basal cisterns are patent. No extra-ax ial fluid collections. Brain: No midline shift. No intracranial masses or hemorrhage. [place]-white matter interface is norm al. Age-appropriate brain parenchymal volume loss and chronic small vessel ischemic change can be se en. Skull and face: There is partial visualization of soft tissue gas involving the lateral aspect of th e nose on the left. No radiopaque foreign bodies are seen. Calvarium and visualized facial bones are intact, without suspicious lesions. Sinuses: Visualized sinuses and mastoids are clear. IMPRESSION: Stable right parietal approach ventriculostomy catheter seen, stable symmetric dilatation of the late ral ventricles. No intracranial hemorrhage is seen. No significant intracranial abnormality is seen. Soft tissue injury of the left nose partially seen. Reviewed by: Giovanny Person MD on 05/06/2023 2:31 PM [place] Approved by: Giovanny Person MD on 05/06/2023 2:31 PM [facility] Station ID: [id number]
[2023-05-06] MEDS: SODIUM CHLORIDE 0.9% 1,000 ML IV STA (15:46)
[2023-05-06 17:32] LABS: BILIRUBIN,URINE NEGATIVE (NEGATIVE); CLARITY,URINE CLEAR (CLEAR); GLUCOSE, URINE (UA) NEGATIVE (NEGATIVE); KETONES,URINE (UA) NEGATIVE (NEGATIVE); LEUKOCYTE ESTERASE, URINE NEGATIVE (NEGATIVE); NITRITE,URINE NEGATIVE (NEGATIVE); OCCULT BLOOD,URINE SMALL (NEGATIVE); PH,URINE 5.5 PH (5.0-7.5); PROTEIN,URINE NEGATIVE (NEGATIVE); UROBILINOGEN,URINE 0.2 (NORMAL) E.U./dL (NORMAL)
[2023-05-06 17:47] LABS: BACTERIA,URINE None Seen /HPF (None Seen); RBC,URINE 0-5 /HPF (0-5); SQUAMOUS EPITHELIAL CELL,UR RARE Squamous (<= Few); WBC,URINE 0-3 /HPF (0-3)
[2023-05-06 18:14] VITALS: BP 132/64; O2SAT 96
== END 2023-05-06 18:00 | disposition home or self-care (01) ==
LOC: EDUNIT# → ED 12:35
DX: U07.1 COVID-19 (principal); W19.XXXA Unspecified fall, initial encounter; I10 Essential (primary) hypertension; E11.9 Type 2 diabetes mellitus without complications; E78.00 Pure hypercholesterolemia, unspecified; I25.2 Old myocardial infarction; Z79.84 Long term (current) use of oral hypoglycemic drugs; Z79.899 Other long term (current) drug therapy
CPT/HCPCS: 36415; 80053; 81001; 81003; 83690; 85025; 87086; 87633; 99284

== ENCOUNTER 2023-05-31 01:58 | Outpatient (CLI) | payer MEDICARE, BC | END 2023-05-31 09:45 | disposition EMS.NT | LOC: EMS 01:58 | DX: Z03.89 Encounter for observation for other suspected diseases and conditions ruled out (principal) ==

== ENCOUNTER 2023-06-16 09:52 | Outpatient (CLI) | payer MEDICARE, BC ==
[2023-06-16 10:05] LABS: BASOPHILS % (AUTO) 0.5 %; EOSINOPHILS # (AUTO) 0.2 10^3/uL (0.0-0.7); EOSINOPHILS % (AUTO) 1.8 %; HGB - HEMOGLOBIN 13.5 g/dL (14.0-18.0); LYMPHOCYTES # (AUTO) 1.6 10^3/uL (1.5-3.5); LYMPHOCYTES % (AUTO) 18.4 %; MEAN CORPUSCULAR HEMOGLOBIN 31.8 pg (27.0-31.0); MEAN CORPUSCULAR HGB CONC 31.4 g/dL (32.0-36.0); MEAN CORPUSCULAR VOLUME 101.4 fL (80.0-94.0); MEAN PLATELET VOLUME 11.2 fL (7.4-11.4); MONOCYTES # (AUTO) 0.9 10^3/uL (0.0-1.0); MONOCYTES % (AUTO) 10.4 %; NEUTROPHILS # (AUTO) 5.9 10^3/uL (1.5-6.6); NEUTROPHILS % (AUTO) 68.5 %; PLT - PLATELET COUNT 260 10^3/uL (130-450); RED BLOOD COUNT 4.24 10^6/uL (4.70-6.10); RED CELL DISTRIBUTION WIDTH 12.3 % (12.0-15.0); WHITE BLOOD COUNT 8.6 x10^3/uL (4.8-10.8)
[2023-06-16 10:22] LABS: ESTIMATED AVERAGE GLUCOSE 171 mg/dL (70-100); HEMOGLOBIN A1c% 7.6 % (4.27-6.07)
[2023-06-16 10:24] LABS: ALBUMIN 3.8 g/dL (3.2-5.5); ALBUMIN/GLOBULIN RATIO 1.4 (1.0-2.2); ALKALINE PHOSPHATASE 59 IU/L (42-121); ALT ALANINE AMINOTRANSFERASE 14 IU/L (10-60); AST ASPARTATE AMINOTRANSFERASE 10 IU/L (10-42); BILIRUBIN,TOTAL 0.5 mg/dL (0.2-1.0); BUN - BLOOD UREA NITROGEN 27 mg/dL (6-20); CALCIUM 9.6 mg/dL (8.5-10.3); CARBON DIOXIDE - CO2 26 mmol/L (21-32); CHLORIDE 102 mmol/L (101-111); CHOL/HDL RATIO 4.6 (<5.0); CHOLESTEROL 165 mg/dL; CREATININE 1.4 mg/dL (0.6-1.3); GFR - MDRD 48 (>89); GLUCOSE 197 mg/dL (74-104); HDL CHOLESTEROL 36 mg/dL; LDL CHOLESTEROL,CALCULATED 96 mg/dL; LDL/HDL RATIO 2.7 (<3.6); POTASSIUM 4.4 mmol/L (3.5-4.5); SODIUM 135 mmol/L (135-145); TOTAL PROTEIN 6.6 g/dL (6.4-8.9); TRIGLYCERIDES 163 mg/dL (48-352); VLDL CHOLESTEROL 33 mg/dL
[2023-06-16 10:38] LABS: THYROID STIMULATING HORMONE 3.94 uIU/mL (0.34-5.60)
== END 2023-06-16 09:53 | disposition home or self-care (01) ==
LOC: LAB 09:52
PROVIDERS: ATTEND Family Medicine
DX: E11.65 Type 2 diabetes mellitus with hyperglycemia (principal); R63.2 Polyphagia; F41.8 Other specified anxiety disorders; E66.9 Obesity, unspecified; R32 Unspecified urinary incontinence; M47.817 Spondylosis without myelopathy or radiculopathy, lumbosacral region; G47.33 Obstructive sleep apnea (adult) (pediatric); G91.2 (Idiopathic) normal pressure hydrocephalus; F02.80 Dementia in other diseases classified elsewhere, unspecified severity, without behavioral disturbance, psychotic disturbance, mood disturbance, and anxiety
CPT/HCPCS: 36415; 80053; 80061; 83036; 83721; 84443; 85025

== ENCOUNTER 2023-11-10 14:21 | Outpatient (CLI) | payer MEDICARE, BC ==
[2023-11-10 14:48] LABS: CALCIUM 9.6 mg/dL (8.5-10.3); CREATININE 1.3 mg/dL (0.6-1.3); POTASSIUM 4.5 mmol/L (3.5-4.5)
[2023-11-10 21:52] LABS: ESTIMATED AVERAGE GLUCOSE 217 mg/dL (70-100); HEMOGLOBIN A1c% 9.2 % (4.27-6.07)
== END 2023-11-10 14:22 | disposition home or self-care (01) ==
LOC: LAB 14:21
PROVIDERS: ATTEND Family Medicine
DX: I10 Essential (primary) hypertension (principal); G47.30 Sleep apnea, unspecified; F02.80 Dementia in other diseases classified elsewhere, unspecified severity, without behavioral disturbance, psychotic disturbance, mood disturbance, and anxiety; E66.9 Obesity, unspecified; M54.16 Radiculopathy, lumbar region; G91.2 (Idiopathic) normal pressure hydrocephalus; F41.9 Anxiety disorder, unspecified; F32.A Depression, unspecified; E11.65 Type 2 diabetes mellitus with hyperglycemia
CPT/HCPCS: 36415; 80048; 83036